=== PATIENT | male | born 1965 | race Caucasian/White ===

== ENCOUNTER 2023-09-02 15:45 | Outpatient (OUT) | payer OTHER, SELFPAY ==
--- NOTE | 2023-09-02 15:57 | XR_ITS ---
[address] [address] Patient Name: MARCO A MUNGUIA MRN: [id number] date: 1965 Sex: M Assigned Patient Location: RAD Current Patient Location: PT Accession/Order Number: [id number] Exam Date: 09/02/2023 16:05 Report Date: 09/04/2023 06:32 At the request of: RUDOLPH MAZARIEGOS Procedure: XR lumbar spine 6V w bending EXAMINATION: XR lumbar spine 6V w bending HISTORY: Acute Left Sided Low Back Pain M54.50 ; left leg weakness; no known injury COMPARISON: No relevant comparison available. FINDINGS: BONES: Mild degenerative facet arthropathy L4-L5, L5-S1. No fracture, spondylolisthesis, bone lesion. DISC SPACES: No significant disc height narrowing, subluxation, or endplate abnormality. PARASPINOUS: Negative. No paraspinous abnormality is seen. OTHER: Negative. XR/XR lumbar spine 6V w bending IMPRESSION: 1. Mild degenerative facet arthropathy lower lumbar spine. 2. No acute bone abnormality. 3. No appreciable degenerative disc disease. Consider follow-up MRI of lumbar spine for disc herniation if symptoms persist. Electronically authenticated by: THOMAS GALLAGHER Date: 09/04/2023 06:32
== END 2023-09-02 15:46 | disposition home or self-care (01) ==
LOC: RAD 15:51
PROVIDERS: PCP Internal Medicine; Visit Provider Internal Medicine
DX: M54.50 Low back pain, unspecified (principal)
CPT/HCPCS: 72114

== ENCOUNTER 2023-09-10 15:31 | Outpatient (RCR) | payer OTHER, SELFPAY | END 2023-10-03 10:00 | disposition home or self-care (01) | LOC: PT 15:31 | PROVIDERS: PCP Internal Medicine; Visit Provider Internal Medicine | DX: M46.1 Sacroiliitis, not elsewhere classified (principal) | CPT/HCPCS: 97112; 97140; 97162 ==

== ENCOUNTER 2023-10-04 09:24 | Outpatient (RCR) | payer OTHER, SELFPAY | END 2023-10-07 16:02 | disposition home or self-care (01) | LOC: PT 09:24 | PROVIDERS: PCP Internal Medicine; Visit Provider Internal Medicine | DX: M46.1 Sacroiliitis, not elsewhere classified (principal); M54.50 Low back pain, unspecified | CPT/HCPCS: 97110; 97112; 97140 ==

== ENCOUNTER 2023-10-27 15:45 | Outpatient (OUT) | payer OTHER, SELFPAY ==
--- NOTE | 2023-10-27 15:50 | XR_ITS ---
[address] [address] Patient Name: MARCO A MUNGUIA MRN: [id number] date: 1965 Sex: M Assigned Patient Location: [facility] Current Patient Location: Accession/Order Number: [id number] Exam Date: 10/27/2023 15:58 Report Date: 10/28/2023 07:06 At the request of: RUDOLPH MAZARIEGOS Procedure: XR hip RT 2V w/ pelvis PROCEDURE: XR hip RT 2V w/ pelvis COMPARISON: None. HISTORY: pain in right hip M25.551 FINDINGS: BONES:No fracture, acute abnormality, or significant arthropathy. SOFT TISSUES:Negative. No visible soft tissue swelling. EFFUSION:None visible. OTHER: Negative. XR/XR hip RT 2V w/ pelvis IMPRESSION: No acute abnormality Electronically authenticated by: CHRISETN WAGGONER Date: 10/28/2023 07:06
--- OUTSIDE RECORDS SUMMARY | 2023-10-27 16:03 | XMS_ITS | CCD ---
Author Name Unknown Address [address] [place] [address] Organization [facility] Care Team Providers Care Cleaning Associate Name Role Phone GORGE JACQUELINE Unavailable Unavailable BALL, HARLAN Ramirez Unavailable Unavailable BALL, DR GALDAMEZ Primary Care Unavailable BALL, DR GALDAMEZ Admitting Unavailable BALL, DR GALDAMEZ Attending Unavailable BALL, DR GALDAMEZ Primary Care Unavailable BALL, DR GALDAMEZ Admitting Unavailable BALL, DR GALDAMEZ Attending Unavailable BALL, DR GALDAMEZ Primary Care Unavailable REQUEST, DR LOPEZ LISTED Admitting Unavaila ble REQUEST, DR LOPEZ LISTED Attending Unavaila ble REQUEST, DR LOPEZ LISTED Consulting Unavaila ble BALL, DR GALDAMEZ Admitting Unavailable BALL, DR GALDAMEZ Attending Unavailable BALL, DR GALDAMEZ Consulting Unavailable BALL, DR GALDAMEZ Primary Care Unavailable ZIEBER, DR THOMAS Espinoza Consulting Unavailable BALL, DR GALDAMEZ Primary Care Unavailable BALL, DR GALDAMEZ Admitting Unavailable BALL, DR GALDAMEZ Attending Unavailable BALL, DR GALDAMEZ Consulting Unavailable BALL, DR GALDAMEZ Primary Care Unavailable BALL, DR GALDAMEZ Consulting Unavailable BALL, DR GALDAMEZ Admitting Unavailable BALL, DR GALDAMEZ Attending Unavailable BALL, DR GALDAMEZ Primary Care Unavailable BALL, DR GALDAMEZ Admitting Unavailable BALL, DR GALDAMEZ Attending Unavailable BALL, DR GALDAMEZ Consulting Unavailable WEST, DR CHRISTEN Sanchez Consulting Unavailable Ball, Harlan Unavailable Allergies Allergy Classification Reported Allergen(s) Allergy Type Date of Onset Reaction(s) Facility (1 source) Latex Drug allergy (disorder) 05-12-20 16 [facility] Repository (6 sources) atorvastatin Drug Allergy Comment:Myalgi as Home Inventory S[pecialists Other (6 sources) HMG-CoA reductase inhibitor Drug allergy Comment:Myalgi as - patient states he does not have allergies to STATINS Home Inventory S[pecialists Other (6 sources) Latex Propensity to adverse reactions Unknown Home Inventory S[pecialists Other (2 sources) Allergies Reconciled Propensity to adverse reactions Unknown Home Inventory S[pecialists Other (2 sources) patient allergy list reviewed by nurse or physicia Propensity to adverse reactions 07-06-20 Comment:Done Home Inventory S[pecialists Other Medications Current Medications Medication Drug Class(es) Dates Sig (Normalized) Sig (Original) omeprazole 40 mg delayed release oral capsule (6 sources) Proton Pump Inhibitor Start: 08-02-2023 take 1 capsule by mouth once daily Omeprazole 40 MG 1 capsule 30 minutes before morning meal Orally Once a day for 30 days Jul, Active rosuvastatin 20 mg oral capsule (6 sources) HMG-CoA Reductase Inhibitor Start: 07-27-2022 take 1 tablet by mouth once daily in the evening rosuvastatin 20mg rosuvastatin 20mg, 1 (one) tablet daily in evening # 30, 07/27/2022, Ref. x11. Active oral daily in evening for 30 *Reorder from [employer] for eRx and Interaction Alerts* Jul, Active take 1 tablet by teressa th every twenty-four hours Rosuvastatin Calcium 20 MG 1 tablet Oral ly Once a day Active Completed/Discontinued Medications Medication Drug Class(es) Dates Sig (Normalized) Sig (Original) citric acid 75 mg/ml / magnesium oxide 21.9 mg/ml / picosulfate sodium 0.0625 mg/ml oral solution (6 sources) Calculi Dissolution Agent, Anti-coagulant Start: 05-14-2021 take 160 mL by mouth in the evening, then take 160 mL by mouth twice daily in the evening Clenpiq 10-3.5-12 MG-GM -GM/160ML 160 ML AT 3:00 PM AND 160 ML AT 9:00 PM Orally TWICE A DAY for 1 days PLEASE CHECK ALLERGIES May, Not-Taking/PRN predniSONE 20 mg oral tablet (4 sources) Start: 09-01-2023 predniSONE 20 MG 1 tablet Orally tid w/ food x 3 days then bid w/ food x 3 days then qd w/ food x 3 days for 9 days Aug, Not-Taking/PRN Problems Active Problems Problem Classification Problem Date Documented Da te Episodic/Chronic Abdominal pain (2 sources) Epigastric pain; Translations: [Epigastric pain] Episodic Acute bronchitis (2 sources) Acute bronchitis; Translations: [Acute bronchitis, unspecified] Episodic Allergic reactions (8 sources) Inflammatory dermatosis; Translations: [Dermatitis, unspecified] Onset: 6 Episodic Coronary atherosclerosis and other heart disease (1 source) Coronary atherosclerosis and other heart disease Onset: 8 Disorders of lipid metabolism (6 sources) Familial hypercholesterolemia; Translations: [Familial hypercholesterolemia] Onset: 3 Chronic Esophageal disorders (12 sources) Gastro-esophageal reflux disease with esophagitis; Translations: [Gastro-esophageal reflux disease with esophagitis, without bleeding] Onset: 6 Chronic Hyperplasia of prostate (4 sources) Large prostate ; Translations: [Benign prostatic hyperplasia without lower urinary tract symptoms] Onset: 8 Chronic Nutritional deficiencies (6 sources) Vitamin D deficiency, unspecified; Translations: [Vitamin D deficiency] Onset: 1 Chronic Other circulatory disease (2 sources) Elevated blood-pressure reading without diagnosis of hypertension; Translations: [Elevated blood-pressure reading, without diagnosis of hypertension] Episodic Other circulatory disease (1 source) Other specified symptoms and signs involving the circulatory and respiratory systems Episodic Other connective tissue disease (2 sources) Nontraumatic rupture of rotator cuff of left shoulder; Translations: [Unspecified rotator cuff tear or rupture of left shoulder, not specified as traumatic] Episodic Other connective tissue disease (2 sources) Bicipital tenosynovitis; Translations: [Bicipital tendinitis, left shoulder] Episodic Other endocrine disorders (1 source) Testicular hypofunction; Translations: [TESTICULAR HYPOFUNCTION] Onset: 2 Chronic Other endocrine disorders (2 sources) Testicular hypofunction; Translations: [Testicular hypofunction] Chronic Other fractures (2 sources) Closed fracture of thoracic vertebra without spinal cord injury; Translations: [Wedge compression fracture of unspecified thoracic vertebra, initial encounter for closed fracture] Episodic Other gastrointestinal disorders (6 sources) Dysphagia; Translations: [Dysphagia, unspecified] Episodic Other lower respiratory disease (2 sources) Dyspnea; Translations: [Dyspnea, unspecified] Episodic Other nervous system disorders (1 source) Chronic pain; Translations: [Other chronic pain] Chronic Other nervous system disorders (1 source) Other chronic pain Chronic Other non-traumatic joint disorders (1 source) Pain in right hip Episodic Other non-traumatic joint disorders (1 source) Pain in left hip Episodic Other nutritional; endocrine; and metabolic disorders (2 sources) Simple obesity ; Translations: [Other obesity due to excess calories] Onset: 8 Chronic Other nutritional; endocrine; and metabolic disorders (2 sources) Body mass index 30+ - obesity; Translations: [Body mass index 30.0-30.9, adult] Onset: 8 Chronic Other nutritional; endocrine; and metabolic disorders (2 sources) Obesity; Translations: [Obesity, unspecified] Chronic Other upper respiratory disease (2 sources) Seasonal allergic rhinitis; Translations: [Other seasonal allergic rhinitis] Onset: 8 Chronic Other upper respiratory disease (2 sources) Allergic rhinitis; Translations: [Allergic rhinitis, unspecified] Chronic Other upper respiratory disease (2 sources) Allergic rhinitis due to pollen; Translations: [Allergic rhinitis due to pollen] Chronic Other upper respiratory disease (6 sources) Chronic laryngitis; Translations: [Chronic laryngitis] Chronic Other upper respiratory disease (1 source) Chronic laryngitis Chronic Other upper respiratory infections (6 sources) Acute maxillary sinusitis; Translations: [Acute maxillary sinusitis, unspecified] Onset: 3 Episodic Otitis media and related conditions (2 sources) Eustachian tube salpingitis; Translations: [Unspecified Eustachian salpingitis, bilateral] Episodic Residual codes; unclassified (2 sources) H/O: Disorder; Translations: [Personal history of other specified conditions] Episodic Spondylosis; intervertebral disc disorders; other back problems (7 sources) Cervical spondylosis without myelopathy; Translations: [Other spondylosis with radiculopathy, cervical region] Onset: 9 Chronic Spondylosis; intervertebral disc disorders; other back problems (2 sources) Low back pain; Translations: [Low back pain, unspecified] Episodic Syncope (2 sources) Syncope Onset: 8 Unclassified (1 source) Abnormal electrocardiogram [ECG] [EKG] / R94.31(ICD-9) Onset: 8 Unclassified (1 source) Family hx of ischem heart dis and oth dis of the circ sys / Z82.49(ICD-9) Onset: 8 Unclassified (1 source) Obesity, unspecified / E66.9(ICD-9) Onset: 8 Unclassified (3 sources) LOW BACK PAIN, UNSPECIFIED; Translations: [LOW BACK PAIN, UNSPECIFIED] Onset: 2 Past or Other Problems Problem Classification Problem Date Documented Date Episodic/Chronic Cardiac dysrhythmias (2 sources) Bradycardia; Translations: [Bradycardia, unspecified] Onset: 01-13-20 18 Episodic Conditions associated with dizziness or vertigo (2 sources) Dizziness and giddiness; Translations: [Dizziness and giddiness] Onset: 04-09-20 14 Episodic E Codes: Adverse effects of medical drugs (2 sources) Lipid-lowering drug adverse reaction; Translations: [Adverse effect of antihyperlipidemic and antiarteriosclerotic drugs, initial encounter] Onset: 11-23-19 17 Episodic Esophageal disorders (1 source) Esophageal disorders Intestinal infection (2 sources) Infectious colitis, enteritis and gastroenteritis; Translations: [Infectious gastroenteritis and colitis, unspecified] Onset: 11-01-19 18 Episodic Mycoses (2 sources) Tinea corporis; Translations: [Tinea corporis] Onset: 07-08-20 16 Episodic Other connective tissue disease (2 sources) Lateral epicondylitis; Translations: [Lateral epicondylitis of elbow] Onset: 09-24-20 16 Episodic Other connective tissue disease (4 sources) Patellar tendonitis; Translations: [Patellar tendinitis] Onset: 07-08-20 16 Episodic Other connective tissue disease (2 sources) Impingement syndrome of shoulder region; Translations: [Impingement syndrome of right shoulder] Onset: 01-22-20 16 Episodic Other connective tissue disease (2 sources) Muscle pain; Translations: [Unspecified myalgia and myositis] Onset: 11-23-19 17 Episodic Other fractures (5 sources) Wedge compression fracture of unspecified thoracic vertebra, initial encounter for closed fracture; Translations: [WEDGE COMPRS FX UNS TV INIT CLOS FX] Onset: 09-26-20 21 Episodic Other gastrointestinal disorders (2 sources) Pharyngeal dysphagia; Translations: [Dysphagia, pharyngoesophageal phase] Onset: 05-12-20 16 Episodic Other nutritional; endocrine; and metabolic disorders (2 sources) Overweight; Translations: [Overweight] Onset: 11-01-19 18 Episodic Other nutritional; endocrine; and metabolic disorders (2 sources) Body mass index 25-29 - overweight; Translations: [Body mass index 29.0-29.9, adult] Onset: 11-01-19 18 Episodic Other screening for suspected conditions (not mental disorders or infectious disease) (3 sources) Encounter for screening for malignant neoplasm of prostate; Translations: [Encounter for screening for diseases of the blood and blood-forming organs and certain disorders involving the immune mechanism] Onset: 03-05-20 18 Episodic Other skin disorders (2 sources) Disorder of sebaceous gland; Translations: [Other specified disease of sebaceous glands] Onset: 07-08-20 16 Episodic Sprains and strains (10 sources) Strain of muscle and/or tendon of thigh; Translations: [Strain of muscle, fascia and tendon of the posterior muscle group at thigh level, unspecified thigh, initial encounter] Onset: 09-24-20 Resolved : 04-14-20 21 Episodic Syncope (3 sources) Syncope and collapse; Translations: [Syncope and collapse] Onset: 01-27-20 18 Episodic Unclassified (1 source) LOW BACK PAIN, UNSPECIFIED; Translations: [LOW BACK PAIN, UNSPECIFIED] Onset: 10-05-19 22 Unclassified (2 sources) Long-term current use of drug therapy; Translations: [Long-term (current) use of other medications] Onset: 07-10-20 18 Unclassified (2 sources) Acute left-sided low back pain without sciatica M54.50 Results Test Name Value Interpretation Reference Range Facility GLYCOHEMOGLOBIN A1Con 2021 ADA RECOMMENDATION SEE BELOW Normal [facility] Comment on above: Result Comment: ADA RECOMMENDED LIMIT 4.0 - 6.0 ADA THERAPEUTIC TARGET < 7.0 ACTION SUGGESTED > 7.0 Performed By: #### D ATA1C #### [facility] [address] [place] [address] Dr. Christina Palacios Glucose [Mass/Vol] 134 mg/dL Normal [facility] Comment on above: Performed By: #### D ATA1C #### [facility] [address] [address] [address] Christina Palacios HbA1c (Bld) [Mass fraction] 6.3 % Critically high 4.5-6.2 [facility] Comment on above: Performed By: #### D ATA1C #### [facility] [address] [address] [address] Christina Palacios CBC AUTO DIFFon 07-25-2022 BASO # 0.1 103/ul Normal 0.0-0.1 [facility] Comment on above: Performed By: #### C BC #### [facility] [address] [place] [address] Dr. Christina Palacios Basophils/100 WBC (Bld) 0.8 % Normal 0.2-2.0 [facility] Comment on above: Performed By: #### C BC #### [facility] [address] [place] [address] Dr. Chrisitna Palacios EO # 0.4 103/ul Normal 0.0-0.7 [facility] Comment on above: Performed By: #### C BC #### [facility] [address] [place] [address] Dr. Christina Palacios Eosinophils/100 WBC (Bld) 4.7 % Normal 0.9-7.0 [facility] Comment on above: Performed By: #### C BC #### [facility] [address] [place] [address] Dr. Christina Palacios Erythrocyte distribution width (RBC) [Ratio] 12.1 % Normal 11.0-15.0 [facility] Comment on above: Performed By: #### C BC #### [facility] [address] [place] [address] Dr. Christina Palacios Hematocrit (Bld) [Volume fraction] 45.7 % Normal 42.0-54.0 [facility] Comment on above: Performed By: #### C BC #### [facility] [address] [place] [address] Dr. Christina Palacios Hemoglobin (Bld) [Mass/Vol] 15.5 g/dL Normal 14.0-18.0 [facility] Comment on above: Performed By: #### C BC #### [facility] [address] [place] [address] Dr. Christina Palacios IG # 0.03 10e3/ul Normal 0.00-0.03 [facility] Comment on above: Performed By: #### C BC #### [facility] [address] [place] [address] Dr. Christina Palacios IG % 0.4 % Normal 0.0-0.5 [facility] Comment on above: Performed By: #### C BC #### [facility] [address] [place] [address] Dr. Christina Palacios LYMPH # 1.7 103/ul Normal 1.2-3.8 [facility] Comment on above: Performed By: #### C BC #### [facility] [address] [place] [address] Dr. Christina Palacios Lymphocytes/100 WBC (Bld) 21.3 % Normal 20.5-60.0 [facility] Comment on above: Performed By: #### C BC #### [facility] [address] [place] [address] Dr. Christina Palacios MANUAL DIFF REQ NO Normal [facility] Comment on above: Performed By: #### C BC #### [facility] [address] [place] [address] Dr. Christina Palacios MCH (RBC) [Entitic mass] 30.6 pg Normal 25.9-34.0 [facility] Comment on above: Performed By: #### C BC #### [facility] [address] [place] [address] Dr. Christina Palacios MCHC (RBC) [Mass/Vol] 33.9 g/dL Normal 29.9-35.2 [facility] Comment on above: Performed By: #### C BC #### [facility] [address] [place] [address] Dr. Christina Palacios MCV (RBC) [Entitic vol] 90.1 fL Normal 80.0-94.0 [facility] Comment on above: Performed By: #### C BC #### [facility] [address] [place] [address] Dr. Christina Palacios MONO # 0.8 103/ul Normal 0.3-0.8 [facility] Comment on above: Performed By: #### C BC #### [facility] [address] [place] [address] Dr. Christina Palacios Monocytes/100 WBC (Bld) 9.6 % Normal 1.7-12.0 [facility] Comment on above: Performed By: #### C BC #### [facility] [address] [place] [address] Dr. Christina Palacios NEUT # 5.0 103/ul Normal 1.4-6.5 [facility] Comment on above: Performed By: #### C BC #### [facility] [address] [place] [address] Dr. Christina Palacios Neutrophils/100 WBC (Bld) 63.2 % Normal 43.0-75.0 [facility] Comment on above: Performed By: #### C BC #### [facility] [address] [place] [address] Dr. Christina Palacios Platelet mean volume (Bld) [Entitic vol] 9.7 fL Normal 9.5-13.5 [facility] Comment on above: Performed By: #### C BC #### [facility] [address] [place] [address] Dr. Christina Palacios PLT 221 103/ul Normal 150-450 [facility] Comment on above: Performed By: #### C BC #### [facility] [address] [place] [address] Dr. Christina Palacios RBC 5.07 106/ul Normal 4.70-6.10 [facility] Comment on above: Performed By: #### C BC #### [facility] [address] [place] [address] Dr. Christina Palacios WBC 7.9 103/ul Normal 4.0-11.0 [facility] Comment on above: Performed By: #### C BC #### [facility] [address] [place] [address] Dr. Christina Palacios LIPID PROFILEon 07-25-2022 CHOL-HDL RATIO NORM SEE BELOW Normal [facility] Comment on above: Result Comment: 3.3 - 4.4 LOW RISK 4.4 - 7.1 AVERAGE RISK 7.1 - 11.0 MODERATE RISK >11.0 HIGH RISK Performed By: #### C MP, LIPID #### [facility] [address] [address] [address] Christina Palacios Cholesterol [Mass/Vol] 197 mg/dL Normal <=200 [facility] Comment on above: Performed By: #### C MP, LIPID #### [facility] [address] [address] [address] Christina Palacios Cholesterol in HDL [Mass/Vol] 21 mg/dL Critically low 40-60 [facility] Comment on above: Performed By: #### C MP, LIPID #### [facility] [address] [address] [address] Christina Palacios Cholesterol in LDL [Mass/Vol] 134.0 mg/dL Normal [facility] Comment on above: Performed By: #### C MP, LIPID #### [facility] [address] [address] [address] Christina Palacios Cholesterol.total/Cho lesterol in HDL [Mass ratio] 9.4 {ratio} Normal [facility] Comment on above: Performed By: #### C MP, LIPID #### [facility] [address] [address] [address] Christina Palacios HDL NORMAL > or = 60 mg/dl - LOW CARDIOVASCULAR RISK <40 mg/dl - HIGH CARDIOVASCULAR RISK Normal [facility] Comment on above: Performed By: #### C MP, LIPID #### [facility] [address] [address] [address] Chrsitina Palacios LDL CALC NORMAL SEE BELOW Normal [facility] Comment on above: Result Comment: <100 mg/dl OPTIMAL 100 - 129 mg/dl NEAR OR ABOVE OPTIMAL 130 - 159 mg/dl BORDERLINE HIGH 160 - 189 mg/dl HIGH >190 mg/dl VERY HIGH Performed By: #### C MP, LIPID #### [facility] [address] [address] [address] Christina Palacios Triglyceride [Mass/Vol] 210 mg/dL Critically high <=150 [facility] Comment on above: Performed By: #### C MP, LIPID #### [facility] [address] [address] [address] Christina Palacios VLDL CALC 42.0 mg/dL Normal [facility] Comment on above: Performed By: #### C MP, LIPID #### [facility] [address] [place] [address] Dr. Christina Palacios PROF 14(COMP METB)on 022 Albumin [Mass/Vol] 3.8 g/dL Normal 3.4-5.0 [facility] Comment on above: Performed By: #### C MP, LIPID #### [facility] [address] [place] [address] Dr. Christina Palacios Albumin/Globulin [Mass ratio] 1.0 {ratio} Normal [facility] Comment on above: Performed By: #### C MP, LIPID #### [facility] [address] [place] [address] Dr. Christina Palacios ALP [Catalytic activity/Vol] 84 U/L Normal 46-116 [facility] Comment on above: Performed By: #### C MP, LIPID #### [facility] [address] [place] [address] Dr. Christina Palacios ALT [Catalytic activity/Vol] 47 U/L Normal 16-63 [facility] Comment on above: Performed By: #### C MP, LIPID #### [facility] [address] [place] [address] Dr. Christina Palacios Anion gap [Moles/Vol] 9.8 mmol/L Normal [facility] Comment on above: Performed By: #### C MP, LIPID #### [facility] [address] [place] [address] Dr. Christina Palacios AST [Catalytic activity/Vol] 24 U/L Normal 15-37 [facility] Comment on above: Performed By: #### C MP, LIPID #### [facility] [address] [place] [address] Dr. Christina Palacios Bilirubin [Mass/Vol] 0.5 mg/dL Normal 0.2-1.0 [facility] Comment on above: Performed By: #### C MP, LIPID #### [facility] [address] [place] [address] Dr. Christina Palacios Calcium [Mass/Vol] 8.8 mg/dL Normal 8.5-10.1 [facility] Comment on above: Performed By: #### C MP, LIPID #### [facility] [address] [place] [address] Dr. Christina Palacios Chloride [Moles/Vol] 102 mmol/L Normal 98-107 [facility] Comment on above: Performed By: #### C MP, LIPID #### [facility] [address] [place] [address] Dr. Christina Palacios CO2 [Moles/Vol] 29.2 mmol/L Normal 21.0-32.0 [facility] Comment on above: Performed By: #### C MP, LIPID #### [facility] [address] [place] [address] Dr. Christina Palacios Creatinine [Mass/Vol] 0.96 mg/dL Normal 0.70-1.30 [facility] Comment on above: Performed By: #### C MP, LIPID #### [facility] [address] [place] [address] Dr. Christina Palacios EGFR-AF CENTRAL AFRICAN >60 Normal >=60 [facility] Comment on above: Performed By: #### C MP, LIPID #### [facility] [address] [place] [address] Dr. Christina Palacios EGFR-NON AF CENTRAL AFRICAN >60 Normal >=60 [facility] Comment on above: Performed By: #### C MP, LIPID #### [facility] [address] [place] [address] Dr. Christina Palacios Globulin (S) [Mass/Vol] 3.7 g/dL Normal [facility] Comment on above: Performed By: #### C MP, LIPID #### [facility] [address] [place] [address] Dr. Christina Palacios Glucose [Mass/Vol] 134 mg/dL Critically high 74-106 [facility] Comment on above: Performed By: #### C MP, LIPID #### [facility] Laboratory [address] [place] [address] Dr. Christina Palacios Potassium [Moles/Vol] 4.0 mmol/L Normal 3.5-5.1 [facility] Comment on above: Performed By: #### C MP, LIPID #### [facility] [address] [address] [address] Christina Palacios Protein [Mass/Vol] 7.5 g/dL Normal 6.4-8.2 [facility] Comment on above: Performed By: #### C MP, LIPID #### [facility] [address] [address] [address] Christina Palacios Sodium [Moles/Vol] 137 mmol/L Normal 136-145 [facility] Comment on above: Performed By: #### C MP, LIPID #### [facility] [address] [place] [address] Dr. Christina Palacios Urea nitrogen [Mass/Vol] 17.0 mg/dL Normal 7.0-18.0 [facility] Comment on above: Performed By: #### C MP, LIPID #### [facility] [address] [place] [address] Dr. Christina Palacios Urea nitrogen/Creatinine [Mass ratio] 17.7 mg/mg Normal [facility] Comment on above: Performed By: #### C MP, LIPID #### [facility] [address] [place] [address] Dr. Christina Palacios TESTOSTERONE, TOTALon 2020 Testosterone [Mass/Vol] 321 ng/dL Normal 264-916 [facility] Comment on above: Result Comment: Adul t male reference interval is based on a population of healthy nonobese males (BMI <30) between 19 and 39 years old. kunal Parikh.al. JCEM 2017,102;8237-5363. PMID: [id number]. Performed By: #### T ESTTOT #### [facility] [address] [place] [address] Dr. Christina Palacios VIT D 25-OH LABCORPon 2020 Vitamin D, 25-Hydroxy 35.0 ng/mL Normal 30.0-100.0 [facility] Comment on above: Result Comment: Molly min D deficiency has been defined by the [place] [employer] and an Endocrine Society practice guideline as a level of serum 25-OH vitamin D less than 20 ng/mL (1,2). The Endocrine Society went on to further define vitamin D insufficiency as a level between 21 and 29 ng/mL (2). 1. IOM ([place] [employer]). 2010. Dietary reference intakes for calcium and D. [place]: The National Academies Press. 2. Ana MF, Dejuan NC, Tammy HAN, et al. Evaluation, treatment, and prevention of vitamin D deficiency: an Endocrine Society clinical practice guideline. JCEM. 2010; 96(7):1911-30. Performed By: #### V ITADLC #### [facility] [address] [place] [address] Dr. Christina Palacios PROF CHEM 8 (BAS METB)on Anion gap [Moles/Vol] 11.4 mmol/L Normal [facility] Comment on above: Performed By: #### B MP #### [facility] [address] [place] [address] Dr. Christina Palacios Calcium [Mass/Vol] 9.0 mg/dL Normal 8.4-10.2 [facility] Comment on above: Performed By: #### B MP #### [facility] [address] [place] [address] Dr. Christina Palacios Chloride [Moles/Vol] 102 mmol/L Normal 98-107 [facility] Comment on above: Performed By: #### B MP #### [facility] [address] [address] [address] Christina Palacios CO2 [Moles/Vol] 29.6 mmol/L Normal 22.0-30.0 [facility] Comment on above: Performed By: #### B MP #### [facility] [address] [address] [address] Christina Palacios Creatinine [Mass/Vol] 1.09 mg/dL Normal 0.66-1.25 [facility] Comment on above: Performed By: #### B MP #### [facility] [address] [address] [address] Christina Palacios EGFR-AF CENTRAL AFRICAN >60 Normal >=60 [facility] Comment on above: Performed By: #### B MP #### [facility] [address] [address] [address] Christina Palacios EGFR-NON AF CENTRAL AFRICAN >60 Normal >=60 [facility] Comment on above: Performed By: #### B MP #### [facility] [id number] Christina Palacios Glucose [Mass/Vol] 114 mg/dL Critically high 74-106 T [facility] Comment on above: Performed By: #### B MP #### [facility] [address] [address] [address] Christina Palacios Potassium [Moles/Vol] 4.0 mmol/L Normal 3.4-5.0 [facility] Comment on above: Performed By: #### B MP #### [facility] [address] [address] [address] Christina Palacios Sodium [Moles/Vol] 139 mmol/L Normal 137-145 [facility] Comment on above: Performed By: #### B MP #### [facility] [address] [address] [address] Christina Palacios Urea nitrogen [Mass/Vol] 19.0 mg/dL Normal 9.0-20.0 [facility] Comment on above: Performed By: #### B MP #### [facility] [address] [address] [address] Christina Palacios Urea nitrogen/Creatinine [Mass ratio] 17.4 mg/mg Normal [facility] Comment on above: Performed By: #### B MP #### [facility] [address] [address] [address] Christina Palacios XR DEXA BONE DENSITYon 09-26 XR DEXA BONE DENSITY EXAMINATION: XR DEX A BONE DENSITY, 09/26/2021 8:24 AM EST HISTORY: Closed fracture thoracic vertebra, wedge COMPARISON: None. TECHNIQUE: Dual-energy X-ray absorptiometry (DEXA) bone density study performed for the axial skeleton. FINDINGS: SPINE ANALYSIS: Average bone mineral density is 1.245 g/cm2. T-score (standard deviation relative to young adult mean): 0.5 . HIP ANALYSIS: Lowest bone mineral density is within the left femoral neck, 1.038 g/cm2. T-score (standard deviation relative to young adult mean): 0.0 . IMPRESSION: World Alan Organization Classification: Normal - Low Fracture Risk Electronically authenticated by: THOMAS GALLAGHER Date: 2021-09-26 08:53 Normal [facility] COVID-19 Antigenon 1 COVID-19 Antigen Healthcare Worker?: N Kavya Reference Kavya Reference Negative SARS-CoV+SARS-CoV-2 (COVID-19) Ag [Presence] in Respiratory specimen by Rapid immunoassay Negative for SARS Antigen by ARON COVID19 Blank Space Kavya Disclaimer Negative results, from patients with symptom Kavya Disclaimer onset beyond five days, should be treated as Kavya Disclaimer presumptive and confirmation with a molecular Kavya Disclaimer assay, if necessary, for patient management, Kavya Disclaimer may be performed. Negative results do not rule Kavya Disclaimer out COVID-19 and should not be used as the sole Kavya Disclaimer basis for treatment or patient management Kavya Disclaimer decisions, including infection control decisions. Kavya Disclaimer Negative results should be considered in the Kavya Disclaimer context of a patient's recent exposures, history Kavya Disclaimer and the presence of clinical signs and symptoms Kavya Disclaimer consistent with COVID-19. COVID19 Blank Space Kavya Disclaimer The Kavya SARS Antigen ARON does not differentiate Kavya Disclaimer between SARS-CoV and SARS-CoV-2. COVID19 Blank Space Kavya Disclaimer This test was developed and its performance Kavya Disclaimer characteristic determined by [employer] and Kavya Disclaimer validated at [facility]. This Kavya Disclaimer test has not been FDA cleared or approved. This Kavya Disclaimer test has been authorized by FDA under an Emergency Use Kavya Disclaimer Authorization (EUA). This test has been validated Kavya Disclaimer in accordance with the FDA's Guidance Document (Policy Kavya Disclaimer for Diagnostics Testing in Laboratories Certified to Kavya Disclaimer Perform High Complexity Testing under CLIA prior to Kavya Disclaimer Emergency Use Authorization for Coronavirus Kavya Disclaimer is during the Public Health Emergency) Kavya Disclaimer issued on January 04, 2020. This test is only authorized Kavya Disclaimer for the duration of time the declaration that Kavya Disclaimer circumstances exist justifying the authorization of Kavya Disclaimer the emergency use of in vitro diagnostic tests for Kavya Disclaimer detection of SARS-CoV-2 virus and/or diagnosis of Kavya Disclaimer COVID-19 infection under section 564(b)(1) of the Kavya Disclaimer Act, 21 U.S.C. 360bbb-3(b)(1), unless the Kavya Disclaimer authorization is terminated or revoked sooner. PERFORMED BY: [place] [address] PATHOLOGIST PSYCHIC READER ZEE STEINBERG M.D. Normal [facility] Comment on above: Performed By: #### C OVID-19 KAVYA, SOFIANEG #### [facility] [address] [id number] [facility] Kavya Ag Negativeon 09-18-20 21 Kavya Ag Negative Negative Normal Negative [facility] Comment on above: Result Comment: This is a duplicate Kavya SARS Antigen (ARON) result to be used for statistical tracking purpose only. PERFORMED BY: [facility] [address] [place] [address] PATHOLOGIST PSYCHIC READER ZEE STEINBERG M.D. Performed By: #### C OVID-19 KAVYA, SOFIANEG #### [facility] [address] [id number] [facility] XR LSPINE 2_3 VIEWSon 2020 XR LSPINE 2_3 VIEWS EXAMINATION: XR LSPINE 2_3 VIEWS HISTORY: Low back pain COMPARISON: No relevant comparison available. FINDINGS: BONES: Normal alignment with no spondylolisthesis. Anterior wedging T11 and T12 DISC SPACES: Normal. No significant disc height narrowing, subluxation, or endplate abnormality. PARASPINOUS: Negative. No paraspinous abnormality is seen. OTHER: Negative. IMPRESSION: Anterior wedging T11 and T12 vertebral bodies, age indeterminate Electronically authenticated by: CHRISTEN WAGGONER Date: 2021-09-08 07:26 Normal [facility] COVID-19 Antigenon COVID-19 Antigen Healthcare Worker?: N Kavya Reference Kavya Reference Negative SARS-CoV+SARS-CoV-2 (COVID-19) Ag [Presence] in Respiratory specimen by Rapid immunoassay Negative for SARS Antigen by ARON COVID19 Blank Space Kavya Disclaimer Negative results, from patients with symptom Kavya Disclaimer onset beyond five days, should be treated as Kavya Disclaimer presumptive and confirmation with a molecular Kavya Disclaimer assay, if necessary, for patient management, Kavya Disclaimer may be performed. Negative results do not rule Kavya Disclaimer out COVID-19 and should not be used as the sole Kavya Disclaimer basis for treatment or patient management Kavya Disclaimer decisions, including infection control decisions. Kavya Disclaimer Negative results should be considered in the Kavya Disclaimer context of a patient's recent exposures, history Kavya Disclaimer and the presence of clinical signs and symptoms Kavya Disclaimer consistent with COVID-19. COVID19 Blank Space Kavya Disclaimer The Kavya SARS Antigen ARON does not differentiate Kavya Disclaimer between SARS-CoV and SARS-CoV-2. COVID19 Blank Space Kavya Disclaimer This test was developed and its performance Kavya Disclaimer characteristic determined by [employer] and Kavya Disclaimer validated at [facility]. This Kavya Disclaimer test has not been FDA cleared or approved. This Kavya Disclaimer test has been authorized by FDA under an Emergency Use Kavya Disclaimer Authorization (EUA). This test has been validated Kavya Disclaimer in accordance with the FDA's Guidance Document (Policy Kavya Disclaimer for Diagnostics Testing in Laboratories Certified to Kavya Disclaimer Perform High Complexity Testing under CLIA prior to Kavya Disclaimer Emergency Use Authorization for Coronavirus Kavya Disclaimer is during the Public Health Emergency) Kavya Disclaimer issued on January 04, 2020. This test is only authorized Kavya Disclaimer for the duration of time the declaration that Kavya Disclaimer circumstances exist justifying the authorization of Kavya Disclaimer the emergency use of in vitro diagnostic tests for Kavya Disclaimer detection of SARS-CoV-2 virus and/or diagnosis of Kavya Disclaimer COVID-19 infection under section 564(b)(1) of the Kavya Disclaimer Act, 21 U.S.C. 360bbb-3(b)(1), unless the Kavya Disclaimer authorization is terminated or revoked sooner. PERFORMED BY: [facility] [address] [facility] [address] PATHOLOGIST PSYCHIC READER ZEE STEINBERG M.D. [facility] Comment on above: Performed By: #### S MARQUES COVID-19 KAVYA #### [address] Kavya Ag Negativeon 06-04-20 21 Kavya Ag Negative Negative Normal Negative [facility] Comment on above: Result Comment: This is a duplicate Kavya SARS Antigen (ARON) result to be used for statistical tracking purpose only. PERFORMED BY: [place] [address] PATHOLOGIST PSYCHIC READER ZEE STEINBERG M.D. Performed By: #### S OFIANEG, COVID-19 KAVYA #### [address] Vital Signs Date Time Vital Sign Value Performing Clinician Facility 10-26-2023 15:00-0500 Body height 175.26 cm Harlan Ball Other [employer] [facility] [employer] Other 10-26-2023 15:00-0500 Body mass index (BMI) [Ratio] 30.54 kg/m2 Harlan Ball Other [facility] Other 10-26-2023 15:00-0500 Body weight 93.8 kg Harlan Ball Other [facility] Other 10-26-2023 15:00-0500 Diastolic blood pressure 88 mm[Hg] Harlan Ball Other [facility] Other 10-26-2023 15:00-0500 Respiratory rate 12 /min Harlan Ball Other [facility] Other 10-26-2023 15:00-0500 Systolic blood pressure 147 mm[Hg] Harlan Ball Other [facility] Other 09-01-2023 15:15-0500 Body height 175.26 cm Harlan Ball Other [facility] Other 09-01-2023 15:15-0500 Body mass index (BMI) [Ratio] 30.92 kg/m2 Harlan Ball Other [facility] Other 09-01-2023 15:15-0500 Body weight 94.98 kg Harlan Hernandez Other [facility] Other 09-01-2023 15:15-0500 Diastolic blood pressure 94 mm[Hg] Harlan Hernandez Other [facility] Other 09-01-2023 15:15-0500 Respiratory rate 12 /min Harlan Hernandez Other [facility] Other 09-01-2023 15:15-0500 Systolic blood pressure 157 mm[Hg] Harlan Hernandez Other [facility] Other Encounters Encounter Date Encounter Type Care Provider Facility Start: 10-26-2023 End: 10-26-2023 ambulatory Harlan Hernandez Other [facility] Other Start: 10-26-2023 Office outpatient vi sit 15 minutes Harlan Ball [facility] Start: 09-06-2023 End: 09-06-2023 ambulatory Harlan Hernandez Other [facility] Other Start: 09-06-2023 Telephone encounter Harlan Hernandez [facility] Start: 09-01-2023 End: 09-01-2023 ambulatory Harlan Hernandez Other [facility] Other Start: 09-01-2023 Office outpatient vi sit 15 minutes Harlan Ball [facility] Start: 09-01-2023 Telephone encounter Harlan Ball [facility] Start: 08-02-2023 End: 08-02-2023 ambulatory Harlan Ball Other [facility] Other Start: 08-02-2023 Office outpatient vi sit 15 minutes Harlan Ball [facility] Start: 08-02-2023 Telephone encounter Harlan Ball [facility] Start: 07-29-2022 Encounter for genera l adult medical examination without abnormal findings DR HARLAN HERNANDEZ [facility] Start: 07-27-2022 End: 07-28-[address] HARLAN HERNANDEZ Facility:[facility] Start: 07-25-2022 End: 07-26-[address] HARLAN HERNANDEZ Facility:[facility] Start: 07-25-2022 End: 07-26-2022 Encounter for general adult medical examination without abnormal findings DR HARLAN HERNANDEZ Facility:[facility] Start: 07-14-2022 Adult health examination Harlan Hernandez Other [facility] Other Start: 10-05-2021 End: 10-17-[address] HARLAN HERNANDEZ Facility:[facility] Start: 09-29-2021 End: 09-30-[address] HARLAN HERNANDEZ Facility:[facility] Start: 09-26-2021 End: 09-27-[address] HARLAN HERNANDEZ Facility:[facility] Start: 09-11-2021 End: 10-03-[address] HARALN HERNANDEZ Facility:[facility] Start: 09-06-2021 End: 09-07-[address] HARLAN HERNANDEZ Facility:[facility] Start: 03-03-2018 Ambulatory JACQUELINE PENNINGTON Faci lity:[id number] Start: 03-03-2018 Ambulatory Facility:9 [id number] Procedures Date Procedure Procedure Detail Performing Clinician Start: 07-25-[address] SHINE [facility] [place] Comment on above: Performed By: #### P [facility] #### [facility] [address] [place] [address] Dr. Christina Palacios Start: 04-12-2018 General examination of patient Harlan Hernandez Other Start: 03-05-2018 Screening for malign ant neoplasm of colon Harlan Hernandez Other Depression screening Lizette Hernandez Other Screening for malign ant neoplasm of prostate Harlan Hernandez Other Immunizations Immunization Date Immunization Notes Care Provider Ashley loo 07-18-2021 influenza virus vaccine, split virus (incl. purified surface antigen) Harlan Hernandez Other [facility] Other 01-08-2021 COVID-19 Vaccine Pfi zer - Documentation Purposes Only Harlan Hernandez Other [facility] Other 12-18-2020 Do not use COVID-19 Pfizer 2 dose Harlan Ball Other [facility] Other Payers Date Payer Category Payer Unknown [id number] 2.16.84 [id number] 1965 Unknown [id number] 2.16.84 [id number] 1965 Unknown [id number] 2.16.84 [id number] 1965 Unknown [id number] 2.16.84 [id number] 1965 Unknown [id number] 2.16.84 [id number] 1965 Unknown [id number] 2.16.84 [id number] 1960 Self-pay 1960 Unknown [id number] 1960 Unknown [id number] Unknown [id number] 2.16.84 [id number] Social History Date Type Detail Facility Unknown if ever smoked [facility] Other Sex Assigned At Sex Assigned At Bir th [facility] Other Evaluation note 10-26-2023 Note Date & Type Note Facility 10-26-2023 Evaluation note Encounter Date Diagnosis Assessment Notes Oct, Pain in right hip (ICD-10 - M25.551) Pain locate in proximal hamstring area. Instructed on stretching, ice/heat and topical analgesics. XR hip Oct, Low back pain, unspecified (ICD-10 - M54.50) Continue HEP set up w/ PT Heat/ice and stretching Lidocaine patches, Tylenol and Aleve Oct, Pain in left hip (ICD-10 - M25.552) Pain has resolved w/ residual aching w/ initiating activity Oct, Other chronic pain (ICD-10 - G89.29) Persistent pain in the low back, hips and proximal lower extremities. Unsure of exact etiology but degenerative arthritis, muscle strain likely cause Migratory characteristics and improvement w/ movement point towards OA Oct, Other The patient is instructed to avoid bending, twisting or lifting. They are to use intermittent heat and ice as needed. They may schedule a massage or gentle manipulation. They may safely use Tylenol as needed. Stretching exercises [facility] Other Evaluation note 09-01-2023 Note Date & Type Note Facility 09-01-2023 Evaluation note Encounter Date Diagnosis Assessment Notes Aug, Acute left-sided low back pain without sciatica (ICD-10 - M54.50) Heat/ice and stretching. Tylenol and Motrin as needed. XR ordered Refer to PT Aug, Sacroiliitis (ICD-10 - M46.1) Heat/ice and Tylenol. Motrin as needed. Stretching exercises reviewed w/ handouts. Refer to PT for evaluation and treatment No improvement would refer to pain management [facility] Other Evaluation note 08-02-2023 Note Date & Type Note Facility 08-02-2023 Evaluation note Encounter Date Diagnosis Assessment Notes Jul, Choking episode (ICD-10 - R09.89) Smaller bites, chew food thoroughly and drink between bites. MBS to assess swallowing function, r/o aspiration Jul, Chronic laryngitis (ICD-10 - J37.0) GERD precautions. MBS and referral to ENT for direct laryngoscopy Jul, Gastroesophageal reflux disease with esophagitis without hemorrhage (ICD-10 - K21.00) Diet instructions: Smaller portions, avoid eating and laying flat, avoid eating or drinking prior to bedtime. Weight loss. Initiate PPI [facility] Other Evaluation note Note Date & Type Note Facility Evaluation note No Information [email or web address] Other History general Narrative - Reported Note Date & Type Note Facility History general Narrative - Reported Type Medical History HLD Surgical History appendix Surgical History tonsils Surgical History hernia [facility] Other History general Narrative - Reported Note Date & Type Note Facility History general Narrative - Reported Type Medical History HLD Surgical History appendix Surgical History tonsils Surgical History hernia Hospitalization History see surgical history [facility] Other Summary Purpose Family History No Family History Records FoundNo Family History Records FoundNo Family History Records FoundNo Family History Records Found Advance Directives No Advanced Directives Records FoundNo Advanced Directives Records FoundNo Advanced Directives Records FoundNo Advanced Directives Records Found Additional Source Comments (unrecognized sect ion and content) No Status Records FoundNo Status Records FoundNo Status Records FoundNo Status Records Found INFORMATION SOURCE (unrecogn ized section and content) DATE CREATED AUTHOR 03/23/2018 [facility] DATE CREATED AUTHOR AUTHOR'S ORGANIZ ATION 03/23/2018 [facility] [place] DATE CREATED AUTHOR AUTHOR'S ORGANIZ ATION 10/27/2021 [facility] DATE CREATED AUTHOR AUTHOR'S ORGANIZ ATION 07/30/2022 [facility] REASON FOR VISIT (unrecogniz ed section and content) discuss next steps after PTX R resultsPT orderBack/Leg Painsore throat for weeks [phone] FOR RECORDS PERTAINING TO PATIENTS WHO ARE OR HAVE BEEN ENROLLED IN A CHEMICAL DEPENDENCY/SUBSTANCEABUSE PROGRAM, SOME INFORMATION MAY BE OMITTED. This clinical summary was aggregated from multiple sources. Caution should be exercised in using it in the provision of clinical care. This summary normalizes information from multiple sources, and as a consequence, information in this document may materially change the coding, format and clinical context of patient data. In addition, data may be omitted in some cases. CLINICAL DECISIONS SHOULD BE BASED ON THE PRIMARY CLINICAL RECORDS. [employer] provides no warranty or guarantee of the accuracy or completeness of information in this document.
== END 2023-10-27 15:46 | disposition home or self-care (01) ==
LOC: RAD 15:46
PROVIDERS: PCP Internal Medicine; Visit Provider Internal Medicine
DX: M25.551 Pain in right hip (principal)
CPT/HCPCS: 73502

== ENCOUNTER 2023-11-16 15:36 | Outpatient (OUT) | payer OTHER, SELFPAY ==
--- NOTE | 2023-11-16 15:41 | MR_ITS ---
The [address] [address] Patient Name: MARCO A MUNGUIA MRN: [id number] date: 1965 Sex: M Assigned Patient Location: MRI Current Patient Location: MRI Accession/Order Number: [id number] Exam Date: 11/16/2023 15:46 Report Date: 11/16/2023 18:29 At the request of: RUDOLPH MAZARIEGOS Procedure: MR lumbar spine wo con EXAM: MRI of the lumbar spine without IV gadolinium contrast. REASON FOR EXAM: Acute lower back pain with pain radiating into the left hip COMPARISON: None FINDINGS: No lumbar spine fractures, acute malalignment or acute abnormal marrow signal. No spinal canal mass, hematoma or fluid collection. No substantial disc bulges or protrusions. Preserved intervertebral disc heights. Bilateral L5-S1 degenerative facet joint changes. No substantial spinal canal stenoses. No substantial neural foraminal stenoses. Remainder unremarkable. MR/MR lumbar spine wo con IMPRESSION: 1. No acute lumbar spine abnormalities. 2. No substantial spinal canal or neural foraminal stenoses. Electronically authenticated by: JOHANN GALINDO Date: 11/16/2023 18:29
--- OUTSIDE RECORDS SUMMARY | 2023-11-16 15:55 | XMS_ITS | CCD ---
Author Name Unknown Address [address] [place] [address] Organization [facility] Care Team Providers [facility] Manager Name Role Phone GORGE JACQUELINE Unavailable Unavailable [...] Latex Drug allergy (disorder) 05-12-20 16 [facility] Repository (9 sources) atorvastatin Drug Allergy Comment:Myalgi as [facility] Other (9 sources) HMG-CoA reductase inhibitor Drug allergy Comment:Myalgi as - patient states he does not have allergies to STATINS [facility] Other (9 sources) Latex Propensity to adverse reactions Unknown [facility] Other (2 sources) Allergies Reconciled Propensity to adverse reactions Unknown [facility] Other (2 sources) patient allergy list reviewed by nurse or physicia Propensity to adverse reactions 07-06-20 Comment:Done [facility] Other Medications Current Medications Medication Drug Class(es) Dates Sig (Normalized) Sig (Original) omeprazole 40 mg delayed release oral capsule (9 sources) Proton Pump Inhibitor Start: 08-02-2023 take 1 capsule by mouth once daily Omeprazole 40 MG 1 capsule 30 minutes before morning meal Orally Once a day for 30 days Jul, Active rosuvastatin 20 mg oral capsule (9 sources) HMG-CoA Reductase Inhibitor Start: 07-27-2022 take 1 tablet by mouth once daily in the evening rosuvastatin 20mg rosuvastatin 20mg, 1 (one) tablet daily in evening # 30, 07/27/2022, Ref. x11. Active oral daily in evening for 30 *Reorder from [employer] for eRx and Interaction Alerts* Jul, Active take 1 tablet by teressa th every twenty-four hours Rosuvastatin Calcium 20 MG 1 tablet Oral ly Once a day Active Completed/Discontinued Medications Medication Drug Class(es) Dates Sig (Normalized) Sig (Original) citric acid 75 mg/ml / magnesium oxide 21.9 mg/ml / picosulfate sodium 0.0625 mg/ml oral solution (9 sources) Calculi Dissolution Agent, Anti-coagulant Start: 05-14-2021 take 160 mL by mouth in the evening, then take 160 mL by mouth twice daily in the evening Clenpiq 10-3.5-12 MG-GM -GM/160ML 160 ML AT 3:00 PM AND 160 ML AT 9:00 PM Orally TWICE A DAY for 1 days PLEASE CHECK ALLERGIES May, Not-Taking/PRN predniSONE 20 mg oral tablet (7 sources) Start: 09-01-2023 predniSONE 20 MG 1 [...] [Familial hypercholesterolemia] Onset: 3 Chronic Esophageal disorders (15 sources) Gastro-esophageal reflux disease with esophagitis; Translations: [...] for closed fracture] Episodic Other gastrointestinal disorders (9 sources) Dysphagia; Translations: [Dysphagia, unspecified] Episodic Other lower respiratory disease (2 sources) Dyspnea; Translations: [Dyspnea, unspecified] Episodic Other nervous system disorders (4 sources) Chronic pain; Translations: [Other chronic pain] Chronic Other nervous system disorders (2 sources) Other chronic pain Chronic Other non-traumatic joint disorders (2 sources) Pain in right hip Episodic Other non-traumatic joint disorders (2 sources) Pain in left hip Episodic Other nutritional; [...] to pollen] Chronic Other upper respiratory disease (9 sources) Chronic laryngitis; Translations: [Chronic laryngitis] Chronic [...] Spondylosis; intervertebral disc disorders; other back problems (11 sources) Cervical spondylosis without myelopathy; Translations: [Other spondylosis with radiculopathy, cervical region] Onset: 9 Chronic Spondylosis; intervertebral disc disorders; other back problems (4 sources) Low back pain; Translations: [Low back [...] of other medications] Onset: 07-10-20 18 Unclassified (4 sources) Acute left-sided low back pain without sciatica M54.50 Results Test Name Value Interpretation Reference Range Facility GLYCOHEMOGLOBIN A1Con 2021 ADA RECOMMENDATION SEE BELOW Normal [facility] Comment on above: Result Comment: ADA RECOMMENDED LIMIT 4.0 - 6.0 ADA THERAPEUTIC TARGET < 7.0 ACTION SUGGESTED > 7.0 Performed By: #### D ATA1C #### [facility] [address] [place] [address] Dr. Christina Palacios Glucose [Mass/Vol] 134 mg/dL Normal [facility] Comment on above: Performed By: #### D ATA1C #### [facility] [address] [address] [address] Christina Palacios HbA1c (Bld) [Mass fraction] 6.3 % Critically high 4.5-6.2 [facility] Comment on above: Performed By: #### D ATA1C #### [facility] [address] [address] [address] Christina Palacios CBC AUTO DIFFon 07-25-2022 BASO # 0.1 103/ul Normal 0.0-0.1 [facility] Comment on above: Performed By: #### C BC #### [facility] [address] [place] [address] Dr. Christina Palacios Basophils/100 WBC (Bld) 0.8 % Normal 0.2-2.0 [facility] Comment on above: Performed By: #### C BC #### [facility] [address] [place] [address] Dr. Christina Palacios EO # 0.4 103/ul Normal 0.0-0.7 [facility] Comment on above: Performed By: #### C BC #### [facility] [address] [place] [address] Dr. Christina Palacios Eosinophils/100 WBC (Bld) 4.7 % Normal 0.9-7.0 [facility] Comment on above: Performed By: #### C BC #### [facility] [address] [place] [address] Dr. Christina Palacios Erythrocyte distribution width (RBC) [Ratio] 12.1 % Normal 11.0-15.0 [facility] Comment on above: Performed By: #### C BC #### [facility] [address] [place] [address] Dr. Christina Palacios Hematocrit (Bld) [Volume fraction] 45.7 % Normal 42.0-54.0 [facility] Comment on above: Performed By: #### C BC #### [facility] [address] [place] [address] Dr. Christina Palacios Hemoglobin (Bld) [Mass/Vol] 15.5 g/dL Normal 14.0-18.0 [facility] Comment on above: Performed By: #### C BC #### [facility] [address] [place] [address] Dr. Christina Palacios IG # 0.03 10e3/ul Normal 0.00-0.03 [facility] Comment on above: Performed By: #### C BC #### [facility] [address] [place] [address] Dr. Christina Palacios IG % 0.4 % Normal 0.0-0.5 [facility] Comment on above: Performed By: #### C BC #### [facility] [address] [place] [address] Dr. Christina Palacios LYMPH # 1.7 103/ul Normal 1.2-3.8 [facility] Comment on above: Performed By: #### C BC #### [facility] [address] [place] [address] Dr. Christina Palacios Lymphocytes/100 WBC (Bld) 21.3 % Normal 20.5-60.0 [facility] Comment on above: Performed By: #### C BC #### [facility] [address] [place] [address] Dr. Christina Palacios MANUAL DIFF REQ NO Normal [facility] Comment on above: Performed By: #### C BC #### [facility] [address] [place] [address] Dr. Christina Palacios MCH (RBC) [Entitic mass] 30.6 pg Normal 25.9-34.0 [facility] Comment on above: Performed By: #### C BC #### [facility] [address] [place] [address] Dr. Christina Palacios MCHC (RBC) [Mass/Vol] 33.9 g/dL Normal 29.9-35.2 [facility] Comment on above: Performed By: #### C BC #### [facility] [address] [place] [address] Dr. Christina Palacios MCV (RBC) [Entitic vol] 90.1 fL Normal 80.0-94.0 [facility] Comment on above: Performed By: #### C BC #### [facility] [address] [place] [address] Dr. Christina Palacios MONO # 0.8 103/ul Normal 0.3-0.8 [facility] Comment on above: Performed By: #### C BC #### [facility] [address] [place] [address] Dr. Christina Palacios Monocytes/100 WBC (Bld) 9.6 % Normal 1.7-12.0 [facility] Comment on above: Performed By: #### C BC #### [facility] [address] [place] [address] Dr. Christina Palacios NEUT # 5.0 103/ul Normal 1.4-6.5 [facility] Comment on above: Performed By: #### C BC #### [facility] [address] [place] [address] Dr. Christina Palacios Neutrophils/100 WBC (Bld) 63.2 % Normal 43.0-75.0 [facility] Comment on above: Performed By: #### C BC #### [facility] [address] [place] [address] Dr. Christina Palacios Platelet mean volume (Bld) [Entitic vol] 9.7 fL Normal 9.5-13.5 [facility] Comment on above: Performed By: #### C BC #### [facility] [address] [place] [address] Dr. Christina Palacios PLT 221 103/ul Normal 150-450 [facility] Comment on above: Performed By: #### C BC #### [facility] [address] [place] [address] Dr. Christina Palacios RBC 5.07 106/ul Normal 4.70-6.10 [facility] Comment on above: Performed By: #### C BC #### [facility] [address] [place] [address] Dr. Christina Palacios WBC 7.9 103/ul Normal 4.0-11.0 [facility] Comment on above: Performed By: #### C BC #### [facility] [address] [place] [address] Dr. Christina Palacios LIPID PROFILEon 07-25-2022 CHOL-HDL RATIO NORM SEE BELOW Normal [facility] Comment on above: Result Comment: 3.3 - 4.4 LOW RISK 4.4 - 7.1 AVERAGE RISK 7.1 - 11.0 MODERATE RISK >11.0 HIGH RISK Performed By: #### C MP, LIPID #### [facility] [address] [address] [address] Christina Palacios Cholesterol [Mass/Vol] 197 mg/dL Normal <=200 [facility] Comment on above: Performed By: #### C MP, LIPID #### [facility] [address] [address] [address] Christina Palacios Cholesterol in HDL [Mass/Vol] 21 mg/dL Critically low 40-60 [facility] Comment on above: Performed By: #### C MP, LIPID #### [facility] [address] [address] [address] Christina Palacios Cholesterol in LDL [Mass/Vol] 134.0 mg/dL Normal [facility] Comment on above: Performed By: #### C MP, LIPID #### [facility] [address] [address] [address] Christina Palacios Cholesterol.total/Cho lesterol in HDL [Mass ratio] 9.4 {ratio} Normal [facility] Comment on above: Performed By: #### C MP, LIPID #### [facility] [address] [address] [address] Christina Palacios HDL NORMAL > or = 60 mg/dl - LOW CARDIOVASCULAR RISK <40 mg/dl - HIGH CARDIOVASCULAR RISK Normal [facility] Comment on above: Performed By: #### C MP, LIPID #### [facility] [address] [address] [address] Christina Palacios LDL CALC NORMAL SEE BELOW Normal [facility] Comment on above: Result Comment: <100 mg/dl OPTIMAL 100 - 129 mg/dl NEAR OR ABOVE OPTIMAL 130 - 159 mg/dl BORDERLINE HIGH 160 - 189 mg/dl HIGH >190 mg/dl VERY HIGH Performed By: #### C MP, LIPID #### [facility] [address] [address] [address] Christina Palacios Triglyceride [Mass/Vol] 210 mg/dL Critically high <=150 [facility] Comment on above: Performed By: #### C MP, LIPID #### [facility] [address] [address] [address] Christina Palacios VLDL CALC 42.0 mg/dL Normal [facility] Comment on above: Performed By: #### C MP, LIPID #### [facility] [address] [place] [address] Dr. Christina Palacios PROF 14(COMP METB)on 022 Albumin [Mass/Vol] 3.8 g/dL Normal 3.4-5.0 [facility] Comment on above: Performed By: #### C MP, LIPID #### [facility] [address] [place] [address] Dr. Chrisitna Palacios Albumin/Globulin [Mass ratio] 1.0 {ratio} Normal [facility] Comment on above: Performed By: #### C MP, LIPID #### [facility] [address] [place] [address] Dr. Christina Palacios ALP [Catalytic activity/Vol] 84 U/L Normal 46-116 [facility] Comment on above: Performed By: #### C MP, LIPID #### [facility] [address] [place] [address] Dr. Christina Palacios ALT [Catalytic activity/Vol] 47 U/L Normal 16-63 [facility] Comment on above: Performed By: #### C MP, LIPID #### [facility] [address] [place] [address] Dr. Christina Palacios Anion gap [Moles/Vol] 9.8 mmol/L Normal [facility] Comment on above: Performed By: #### C MP, LIPID #### [facility] [address] [place] [address] Dr. Christina Palacios AST [Catalytic activity/Vol] 24 U/L Normal 15-37 [facility] Comment on above: Performed By: #### C MP, LIPID #### [facility] [address] [place] [address] Dr. Christina Palacios Bilirubin [Mass/Vol] 0.5 mg/dL Normal 0.2-1.0 [facility] Comment on above: Performed By: #### C MP, LIPID #### [facility] [address] [place] [address] Dr. Christina Palacios Calcium [Mass/Vol] 8.8 mg/dL Normal 8.5-10.1 [facility] Comment on above: Performed By: #### C MP, LIPID #### [facility] [address] [place] [address] Dr. Christina Palacios Chloride [Moles/Vol] 102 mmol/L Normal 98-107 [facility] Comment on above: Performed By: #### C MP, LIPID #### [facility] [address] [place] [address] Dr. Christina Palacios CO2 [Moles/Vol] 29.2 mmol/L Normal 21.0-32.0 [facility] Comment on above: Performed By: #### C MP, LIPID #### [facility] [address] [place] [address] Dr. Christina Palacios Creatinine [Mass/Vol] 0.96 mg/dL Normal 0.70-1.30 [facility] Comment on above: Performed By: #### C MP, LIPID #### [facility] [address] [place] [address] Dr. Christina Palacios EGFR-AF BAHRAINI >60 Normal >=60 [facility] Comment on above: Performed By: #### C MP, LIPID #### [facility] [address] [place] [address] Dr. Christina Palacios EGFR-NON AF BAHRAINI >60 Normal >=60 [facility] Comment on above: Performed By: #### C MP, LIPID #### [facility] [address] [place] [address] Dr. Christina Palacios Globulin (S) [Mass/Vol] 3.7 g/dL Normal [facility] Comment on above: Performed By: #### C MP, LIPID #### [facility] [address] [place] [address] Dr. Christina Palacios Glucose [Mass/Vol] 134 mg/dL Critically high 74-106 [facility] Comment on above: Performed By: #### C MP, LIPID #### [facility] [address] [place] [address] Dr. Christina Palacios Potassium [Moles/Vol] 4.0 mmol/L Normal 3.5-5.1 [facility] Comment on above: Performed By: #### C MP, LIPID #### [facility] [address] [address] [address] Christina Palacios Protein [Mass/Vol] 7.5 g/dL Normal 6.4-8.2 [facility] Comment on above: Performed By: #### C MP, LIPID #### [facility] [address] [address] [address] Christina Palacios Sodium [Moles/Vol] 137 mmol/L Normal 136-145 [facility] Comment on above: Performed By: #### C MP, LIPID #### [facility] [address] [place] [address] Dr. Christina Palacios Urea nitrogen [Mass/Vol] 17.0 mg/dL Normal 7.0-18.0 [facility] Comment on above: Performed By: #### C MP, LIPID #### [facility] [address] [place] [address] Dr. Christina Palacios Urea nitrogen/Creatinine [Mass ratio] 17.7 mg/mg Normal [facility] Comment on above: Performed By: #### C MP, LIPID #### [facility] [address] [place] [address] Dr. Christina Palacios TESTOSTERONE, TOTALon 2020 Testosterone [Mass/Vol] 321 ng/dL Normal 264-916 [facility] Comment on above: Result Comment: Adul t male reference interval is based on a population of healthy nonobese males (BMI <30) between 19 and 39 years old. kunal Parikh.al. JCEM 2017,102;0991-7211. PMID: [id number]. Performed By: #### T ESTTOT #### [facility] [address] [place] [address] Dr. Christina Palacios VIT D 25-OH LABCORPon 2020 Vitamin D, 25-Hydroxy 35.0 ng/mL Normal 30.0-100.0 [facility] Comment on above: Result Comment: Molly min D deficiency has been defined by the [place] of [employer] and an Endocrine Society practice guideline as a level of serum 25-OH vitamin D less than 20 ng/mL (1,2). The Endocrine Society went on to further define vitamin D insufficiency as a level between 21 and 29 ng/mL (2). 1. IOM ([place] of Medicine). 2010. Dietary reference intakes for calcium and D. [place]: The National Academies Press. 2. Ana MF, Dejuan NC, Tammy HAN, et al. Evaluation, treatment, and prevention of vitamin D deficiency: an Endocrine Society clinical practice guideline. JCEM. 2010; 96(7):1911-30. Performed By: #### V ITADLC #### [facility] [address] [place] [address] Dr. Christina Palacios PROF CHEM 8 (BAS METB)on Anion gap [Moles/Vol] 11.4 mmol/L Normal [facility] Comment on above: Performed By: #### B MP #### [facility] [address] [place] [address] Dr. Christina Palacios Calcium [Mass/Vol] 9.0 mg/dL Normal 8.4-10.2 [facility] Comment on above: Performed By: #### B MP #### [facility] [address] [place] [address] Dr. Christina Palacios Chloride [Moles/Vol] 102 mmol/L Normal 98-107 [facility] Comment on above: Performed By: #### B MP #### [facility] [address] [address] [address] Christina Palacios CO2 [Moles/Vol] 29.6 mmol/L Normal 22.0-30.0 [facility] Comment on above: Performed By: #### B MP #### [facility] [address] [address] [address] Christina Palacios Creatinine [Mass/Vol] 1.09 mg/dL Normal 0.66-1.25 [facility] Comment on above: Performed By: #### B MP #### [facility] [address] [address] [address] Christina Palacios EGFR-AF BAHRAINI >60 Normal >=60 [facility] Comment on above: Performed By: #### B MP #### [facility] [address] [address] [address] Christina Palacios EGFR-NON AF BAHRAINI >60 Normal >=60 [facility] Comment on above: Performed By: #### B MP #### [facility] [id number] Christina Palacios Glucose [Mass/Vol] 114 mg/dL Critically high 74-106 [facility] Comment on above: Performed By: #### B MP #### [facility] [address] [address] [address] Christina Palacios Potassium [Moles/Vol] 4.0 mmol/L Normal 3.4-5.0 [facility] Comment on above: Performed By: #### B MP #### [facility] [address] [address] [address] Christina Palacios Sodium [Moles/Vol] 139 mmol/L Normal 137-145 [facility] Comment on above: Performed By: #### B MP #### [facility] [address] [address] [address] Christina Palacios Urea nitrogen [Mass/Vol] 19.0 mg/dL Normal 9.0-20.0 [facility] Comment on above: Performed By: #### B MP #### [facility] [address] [address] [address] Christina Palacios Urea nitrogen/Creatinine [Mass ratio] 17.4 mg/mg Normal [facility] Comment on above: Performed By: #### B MP #### [facility] [address] [address] [address] Christina Palacios XR DEXA BONE DENSITYon [...] by: THOMAS GALLAGHER Date: 2021-09-26 08:53 Normal [facility] COVID-19 Antigenon 1 COVID-19 Antigen Healthcare Worker?: [...] its performance Kavya Disclaimer characteristic determined by [employer] and Kavya Disclaimer validated at [facility]. This Kavya Disclaimer test has not [...] Disclaimer is during the Public Health Emergency) Kvaya Disclaimer issued on January 04, 2020. This [...] is terminated or revoked sooner. PERFORMED BY: [place] [id number] PATHOLOGIST [employer] PIPING DESIGNER ZEE STEINBERG M.D. Normal [facility] Comment on above: Performed By: #### C OVID-19 KAVYA, SOFIANEG #### [facility] [address] [id number] [facility] Kavya Ag Negativeon 09-18-20 21 Kavya Ag Negative Negative Normal Negative [facility] Comment on above: Result Comment: This is a duplicate Kavya SARS Antigen (ARON) result to be used for statistical tracking purpose only. PERFORMED BY: [facility] [address] [place] [address] PATHOLOGIST [employer] PIPING DESIGNER ZEE STEINBERG M.D. Performed By: #### C OVID-19 KAVYA, SOFIANEG #### [facility] [address] [id number] [facility] XR LSPINE 2_3 VIEWSon 2020 XR LSPINE [...] CHRISTEN WAGGONER Date: 2021-09-08 07:26 Normal [facility] COVID-19 Antigenon COVID-19 Antigen Healthcare Worker?: [...] its performance Kavya Disclaimer characteristic determined by [employer] and Kavya Disclaimer validated at [facility]. This Kavya Disclaimer test has not [...] is terminated or revoked sooner. PERFORMED BY: [facility] [address] [facility] [place] [address] PATHOLOGIST [employer] PIPING DESIGNER ZEE STEINBERG M.D. [facility] Comment on above: Performed By: #### S MARQUES COVID-19 KAVYA #### [address] Kavya Ag Negativeon 06-04-20 21 Kavya Ag Negative Negative Normal Negative [facility] Comment on above: Result Comment: This is a duplicate Kavya SARS Antigen (ARON) result to be used for statistical tracking purpose only. PERFORMED BY: [place] [id number] PATHOLOGIST [employer] PIPING DESIGNER ZEE STEINBERG M.D. Performed By: #### S OFIANEG, COVID-19 KAVYA #### [address] Vital Signs Date Time Vital Sign Value Performing Clinician Facility 10-26-2023 15:00-0500 Body height 175.26 cm Harlan Ball Other [email or web address] Other 10-26-2023 15:00-0500 Body mass index (BMI) [Ratio] 30.54 kg/m2 Harlan Ball Other [facility] Other 10-26-2023 15:00-0500 Body weight 93.8 kg Harlan Ball Other [facility] Other 10-26-2023 15:00-0500 Diastolic blood pressure 88 mm[Hg] Harlan Ball Other [facility] Other 10-26-2023 15:00-0500 Respiratory rate 12 /min Harlan Ball Other [facility] Other 10-26-2023 15:00-0500 Systolic blood pressure 147 mm[Hg] Harlan Ball Other [facility] Other 09-01-2023 15:15-0500 Body height 175.26 cm Harlan Ball Other [facility] Other 09-01-2023 15:15-0500 Body mass index (BMI) [Ratio] 30.92 kg/m2 Harlan Ball Other [facility] Other 09-01-2023 15:15-0500 Body weight 94.98 kg Harlan Ball Other [facility] Other 09-01-2023 15:15-0500 Diastolic blood pressure 94 mm[Hg] Harlan Ball Other [facility] Other 09-01-2023 15:15-0500 Respiratory rate 12 /min Harlan Ball Other [facility] Other 09-01-2023 15:15-0500 Systolic blood pressure 157 mm[Hg] Harlan Ball Other [facility] Other Encounters Encounter Date Encounter Type Care Provider Facility Start: 11-01-2023 End: 11-01-2023 ambulatory Harlan Ball Other [facility] Other Start: 11-01-2023 Telephone encounter Harlan Ball [facility] Start: 10-26-2023 End: 10-26-2023 ambulatory Harlan Ball Other [facility] Other Start: 10-26-2023 Office outpatient vi sit 15 minutes Harlan Ball [facility] Start: 09-06-2023 End: 09-06-2023 ambulatory Harlan Ball Other [facility] Other Start: 09-06-2023 Telephone encounter Harlan Ball [facility] Start: 09-01-2023 End: 09-01-2023 ambulatory Harlan Ball Other [facility] Other Start: 09-01-2023 Office outpatient vi sit 15 minutes Harlan Ball [facility] Start: 09-01-2023 Telephone encounter Harlan Ball [facility] Start: 08-02-2023 End: 08-02-2023 ambulatory Harlan Ball Other [facility] Other Start: 08-02-2023 Office outpatient vi sit 15 minutes Harlan Hernandez [facility] [facility] Start: 08-02-2023 Telephone encounter Harlan Hernandez FP [facility] Start: 07-29-2022 Encounter for genera l adult medical examination without abnormal findings DR HARLAN HERNANDEZ [facility] Start: 07-27-2022 End: 07-28-[address] HARLAN HERNANDEZ Facility:[facility]1 Start: 07-25-2022 End: 07-26-[address] HARLAN HERNANDEZ Facility:[facility] Start: 07-25-2022 End: 07-26-2022 Encounter for general adult medical examination without abnormal findings DR HARLAN HERNANDEZ Facility:[facility] Start: 07-14-2022 Adult health examination Harlan Hernandez Other [facility] Other Start: 10-05-2021 End: 10-17-[address] HARLAN HERNANDEZ Facility:[facility] Start: 09-29-2021 End: 09-30-[address] HARLAN HERNANDEZ Facility:[facility] Start: 09-26-2021 End: 09-27-[address] HARLAN HERNANDEZ Facility:[facility] Start: 09-11-2021 End: 10-03-[address] HARLAN HERNANDEZ Facility:[facility] Start: 09-06-2021 End: 09-07-[address] HARLAN HERNANDEZ Facility:[facility] Start: 03-03-2018 Ambulatory JACQUELINE PENNINGTON Faci lity:[id number] Start: 03-03-2018 Ambulatory Facility:[id number] Procedures Date Procedure Procedure Detail Performing Clinician Start: 07-25-[address] SHINE [place] Comment on above: Performed By: #### [facility] #### [facility] [address] [place] [address] Dr. Christina Palacios Start: 04-12-2018 General examination of patient Harlan David Other Start: 03-05-2018 Screening for malign ant neoplasm of colon Harlan Hernandez Other Depression screening Maxinejacinta henry David Other Screening for malign ant neoplasm of prostate Harlan Hernandez Other Immunizations Immunization Date Immunization Notes Care Provider Fa cili 07-18-2021 influenza virus vaccine, split virus (incl. purified surface antigen) Harlan Hernandez Other [facility] Other 01-08-2021 COVID-19 Vaccine Pfi zer - Documentation Purposes Only Harlan Hernandez Other [facility] Other 12-18-2020 Do not use COVID-19 Pfizer 2 dose Harlan Hernandez Other [facility] Other Payers Date Payer Category Payer Unknown [id number] 2.16.84 [id number] 1964 Unknown [id number] 2.16.84 [id number] 1964 Unknown [id number] 2.16.84 [id number] 1964 Unknown [id number] 2.16.84 [id number] 1964 Unknown [id number] 2.16.84 [id number] 1964 Unknown [id number] 2.16.84 [id number] 1959 Self-pay 1959 Unknown [id number] 1959 Unknown [id number] Unknown [id number] 2.16.84 [id number] Social History Date Type Detail Facility Unknown if ever smoked [facility] Other Sex Assigned At Sex Assigned At Bir th [facility] Other Evaluation note 11-01-2023 Note Date & Type Note Facility 11-01-2023 Evaluation note Encounter Date Diagnosis Assessment Notes Oct, Acute bilateral low back pain with right-sided sciatica (ICD-10 - M54.41) [facility] Other Evaluation note 11-01-2023 Note Date & Type Note Facility 11-01-2023 Evaluation note Encounter Date Diagnosis Assessment Notes Oct, Low back pain with radiation (ICD-10 - M54.50) [facility] Other Evaluation note 10-26-2023 Note Date & [...] safely use Tylenol as needed. Stretching exercises [facility] Other Evaluation note 09-01-2023 Note Date & [...] No improvement would refer to pain management [facility] Other Evaluation note 08-02-2023 Note Date & [...] prior to bedtime. Weight loss. Initiate PPI [facility] Other Evaluation note Note Date & Type Note Facility Evaluation note No Information [facility] Other History general Narrative - Reported Note Date & Type Note Facility History general Narrative - Reported Type Medical History HLD Surgical History appendix Surgical History tonsils Surgical History hernia [facility] Other History general Narrative - Reported Note Date & Type Note Facility History general Narrative - Reported Type Medical History HLD Surgical History appendix Surgical History tonsils Surgical History hernia Hospitalization History see surgical history [facility] Other Summary Purpose Family History No Family [...] content) DATE CREATED AUTHOR 03/23/2018 [facility] DATE CREATED AUTHOR AUTHOR'S ORGANIZ ATION 03/23/2018 [facility] DATE CREATED AUTHOR AUTHOR'S ORGANIZ ATION 10/27/2021 [facility] DATE CREATED AUTHOR AUTHOR'S ORGANIZ ATION 07/30/2022 [facility] REASON FOR VISIT (unrecogniz ed section and content) Hip Paindiscuss next steps a fter PTXR resultsPT orderBack/Leg Painsore throat for weeks [phone] FOR RECORDS PERTAINING TO PATIENTS WHO ARE [...] BE BASED ON THE PRIMARY CLINICAL RECORDS. [facility]. provides no warranty or guarantee of the accuracy or completeness of information in this document.
== END 2023-11-16 15:37 | disposition home or self-care (01) ==
LOC: MRI 15:36
PROVIDERS: PCP Internal Medicine; Visit Provider Internal Medicine
DX: M54.50 Low back pain, unspecified (principal)
CPT/HCPCS: 72148

== ENCOUNTER 2024-10-21 06:29 | Outpatient (OUT) | payer OTHER, SELFPAY ==
--- OUTSIDE RECORDS SUMMARY | 2024-10-21 06:34 | XMS_ITS | CCD ---
Author Organization [facility] Inform ion Partnership [facility] Care Team Providers Care 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 Name Role Phone JABUDDY HAJIMonae Unavailable Unavailable BALL, HARLAN Ramirez Unavailable Unavailable BALL, DR GALDAMEZ Primary Care Unavailable BALL, DR GALDAMEZ Admitting Unavailable BALL, DR GALDAMEZ Attending Unavailable BALL, DR GALDAMEZ Primary Care Unavailable BALL, DR GALDAMEZ Admitting Unavailable BALL, DR GALDAMEZ Attending Unavailable BALL, DR GALDAMEZ Primary Care Unavailable REQUEST, DR OLPEZ LISTED Admitting Unavaila ble REQUEST, DR LOPEZ [...] CHRISTEN Sanchez Consulting Unavailable Ball, Harlan Unavailable Harlan Hernandez MD Primary Care Provider Malena Baltazar Unavailable [phone] MALENA SAXENA Attending Unavailable MALENA SAXENA Attending Unavailable ENEDINA SAMSON Attending Unavailable Allergies Allergy Classification Reported Allergen(s) Allergy Type Date of Onset Reaction(s) Facility (1 source) Latex Drug allergy (disorder) 05-12-20 16 [facility] Repository (9 sources) atorvastatin Drug Allergy Comment:Myalgi as [facility] Other (9 sources) HMG-CoA reductase inhibitor Drug allergy Comment:Myalgi as - patient states he does not have allergies to STATINS [facility] Other (9 sources) Latex Propensity to adverse reactions Unknown [facility] Other (2 sources) Allergies Reconciled Propensity to adverse reactions Unknown [facility] Other (2 sources) patient allergy list reviewed by nurse or physicia Propensity to adverse reactions 07-06-20 Comment:Done [facility] Other (3 sources) Latex Allergy to substance 12-21-19 Unknown [facility] Medications Current Medications Medication Drug Class(es) Dates Sig (Normalized) Sig (Original) omeprazole 40 mg delayed release oral capsule (9 sources) Proton Pump Inhibitor Start: 08-02-2023 take 1 capsule by mouth once daily Omeprazole 40 MG 1 capsule 30 minutes before morning meal Orally Once a day for 30 days Jul, Active rosuvastatin calcium 20 mg oral tablet (12 sources) HMG-CoA Reductase Inhibitor Start: 10-02-2023 take 1 tablet by mouth once daily rosuvastatin (Crestor) 20 MG tablet Take 20 mg by mouth Daily 10/02/2023 Active Start: 07-27-2022 take 1 tablet by teressa th once daily in the evening rosuvastatin 20mg rosuvastatin 20mg, 1 (one) tablet daily in evening # 30, 07/27/2022, Ref. x11. Active oral daily in evening for 30 *Reorder from [employer] for eRx and Interaction Alerts* Jul, Active Completed/Discontinued Medications Medication Drug Class(es) Dates [...] sources) Obesity; Translations: [Obesity, unspecified] Chronic Other skin disorders (2 sources) Inflamed seborrheic keratosis; Translations: [Inflamed seborrheic keratosis] 10-10-2024 Episodic Other upper respiratory disease (2 sources) Seasonal [...] level, unspecified thigh, initial encounter] Onset: 09-24-20 16 Resolved : 04-14-20 21 Episodic Syncope (3 sources) Syncope and collapse; Translations: [Syncope and collapse] Onset: 01-27-20 18 Episodic Unclassified (1 source) LOW BACK PAIN, UNSPECIFIED; Translations: [LOW BACK PAIN, UNSPECIFIED] Onset: 10-05-19 Unclassified (2 sources) Long-term current use of drug therapy; Translations: [Long-term (current) use of other medications] Onset: 07-10-20 18 Unclassified (4 sources) Acute left-sided low back pain without sciatica M54.50 Results Test Name Value Interpretation Reference Range Facility No Panel Informationon 10-10 [facility] GLYCOHEMOGLOBIN A1Con 2021 ADA RECOMMENDATION SEE BELOW Normal [facility] Comment on above: Result Comment: ADA RECOMMENDED LIMIT 4.0 - 6.0 ADA THERAPEUTIC TARGET < 7.0 ACTION SUGGESTED > 7.0 Performed By: #### D ATA1C #### [facility] [address] [place] [address] Dr. Christina Palacios Glucose [Mass/Vol] 134 mg/dL Normal [facility] Comment on above: Performed By: #### D ATA1C #### [facility] [address] [place] [address] Dr. Christina Palacios HbA1c (Bld) [Mass fraction] 6.3 % Critically high 4.5-6.2 [facility] Comment on above: Performed By: #### D ATA1C #### [facility] [address] [place] [address] Dr. Christina Palacios CBC AUTO DIFFon 07-25-2022 BASO # 0.1 103/ul Normal 0.0-0.1 [facility] Comment on above: Performed By: #### C BC #### [facility] [address] [place] [address] Dr. Christina Palacios Basophils/100 WBC (Bld) 0.8 % Normal 0.2-2.0 [facility] Comment on above: Performed By: #### C BC #### [facility] [address] [place] [address] Dr. Christina Palacios EO # 0.4 103/ul Normal 0.0-0.7 [facility] Comment on above: Performed By: #### C BC #### [facility] [address] [place] [address] Dr. Christina Palacios Eosinophils/100 WBC (Bld) 4.7 % Normal 0.9-7.0 [facility] Comment on above: Performed By: #### C BC #### [facility] [address] [place] [address] Dr. Christina Palacios Erythrocyte distribution width (RBC) [Ratio] 12.1 % Normal 11.0-15.0 [facility] Comment on above: Performed By: #### C BC #### [facility] [address] [place] [address] Dr. Christina Palacios Hematocrit (Bld) [Volume fraction] 45.7 % Normal 42.0-54.0 [facility] Comment on above: Performed By: #### C BC #### [facility] [address] [place] [address] Dr. Christina Palacios Hemoglobin (Bld) [Mass/Vol] 15.5 g/dL Normal 14.0-18.0 [facility] Comment on above: Performed By: #### C BC #### [facility] [address] [place] [address] Dr. Christina Palacios IG # 0.03 10e3/ul Normal 0.00-0.03 [facility] Comment on above: Performed By: #### C BC #### [facility] [address] [place] [address] Dr. Christina Palacios IG % 0.4 % Normal 0.0-0.5 [facility] Comment on above: Performed By: #### C BC #### [facility] [address] [place] [address] Dr. Christina Palacios LYMPH # 1.7 103/ul Normal 1.2-3.8 [facility] Comment on above: Performed By: #### C BC #### [facility] [address] [place] [address] Dr. Christina Palacios Lymphocytes/100 WBC (Bld) 21.3 % Normal 20.5-60.0 [facility] Comment on above: Performed By: #### C BC #### [facility] [address] [place] [address] Dr. Christina Palacios MANUAL DIFF REQ NO Normal [facility] Comment on above: Performed By: #### C BC #### [facility] [address] [place] [address] Dr. Christina Palacios MCH (RBC) [Entitic mass] 30.6 pg Normal 25.9-34.0 [facility] Comment on above: Performed By: #### C BC #### [facility] [address] [place] [address] Dr. Christina Palacios MCHC (RBC) [Mass/Vol] 33.9 g/dL Normal 29.9-35.2 [facility] Comment on above: Performed By: #### C BC #### [facility] [address] [address] [address] Christina Palacios MCV (RBC) [Entitic vol] 90.1 fL Normal 80.0-94.0 [facility] Comment on above: Performed By: #### C BC #### [facility] [address] [address] [address] Christina Palacios MONO # 0.8 103/ul Normal 0.3-0.8 [facility] Comment on above: Performed By: #### C BC #### [facility] [address] [address] [address] Christina Palacios Monocytes/100 WBC (Bld) 9.6 % Normal 1.7-12.0 [facility] Comment on above: Performed By: #### C BC #### [facility] [address] [place] [address] Dr. Christina Palacios NEUT # 5.0 103/ul Normal 1.4-6.5 [facility] Comment on above: Performed By: #### C BC #### [facility] [address] [place] [address] Dr. Christina Palacios Neutrophils/100 WBC (Bld) 63.2 % Normal 43.0-75.0 [facility] Comment on above: Performed By: #### C BC #### [facility] [address] [place] [address] Dr. Christina Palacios Platelet mean volume (Bld) [Entitic vol] 9.7 fL Normal 9.5-13.5 [facility] Comment on above: Performed By: #### C BC #### [facility] [address] [place] [address] Dr. Christina Palacios PLT 221 103/ul Normal 150-450 [facility] Comment on above: Performed By: #### C BC #### [facility] [address] [place] [address] Dr. Christina Palacios RBC 5.07 106/ul Normal 4.70-6.10 [facility] Comment on above: Performed By: #### C BC #### [facility] [address] [place] [address] Dr. Christina Palacios WBC 7.9 103/ul Normal 4.0-11.0 [facility] Comment on above: Performed By: #### C BC #### [facility] [address] [address] [address] Christina Palacios LIPID PROFILEon 07-25-2022 CHOL-HDL RATIO NORM SEE BELOW Normal [facility] Comment on above: Result Comment: 3.3 - 4.4 LOW RISK 4.4 - 7.1 AVERAGE RISK 7.1 - 11.0 MODERATE RISK >11.0 HIGH RISK Performed By: #### C MP, LIPID #### [facility] [address] [address] [address] Christina Palacios Cholesterol [Mass/Vol] 197 mg/dL Normal <=200 [facility] Comment on above: Performed By: #### C MP, LIPID #### [facility] [address] [address] [address] Christina Palacios Cholesterol in HDL [Mass/Vol] 21 mg/dL Critically low 40-60 [facility] Comment on above: Performed By: #### C MP, LIPID #### [facility] [address] [address] [address] Christina Palacios Cholesterol in LDL [Mass/Vol] 134.0 mg/dL Normal [facility] Comment on above: Performed By: #### C MP, LIPID #### [facility] [address] [address] [address] Christina Palacios Cholesterol.total/Cho lesterol in HDL [Mass ratio] 9.4 {ratio} Normal [facility] Comment on above: Performed By: #### C MP, LIPID #### [facility] [address] [address] [address] Christina Palacios HDL NORMAL > or = 60 mg/dl - LOW CARDIOVASCULAR RISK <40 mg/dl - HIGH CARDIOVASCULAR RISK Normal [facility] Comment on above: Performed By: #### C MP, LIPID #### [facility] [address] [address] [address] Christina Palacios LDL CALC NORMAL SEE BELOW Normal [facility] Comment on above: Result Comment: <100 mg/dl OPTIMAL 100 - 129 mg/dl NEAR OR ABOVE OPTIMAL 130 - 159 mg/dl BORDERLINE HIGH 160 - 189 mg/dl HIGH >190 mg/dl VERY HIGH Performed By: #### C MP, LIPID #### [facility] [address] [place] [address] Dr. Christina Palacios Triglyceride [Mass/Vol] 210 mg/dL Critically high <=150 [facility] Comment on above: Performed By: #### C MP, LIPID #### [facility] [address] [place] [address] Dr. Christina Palacios VLDL CALC 42.0 mg/dL Normal [facility] Comment on above: Performed By: #### C MP, LIPID #### [facility] [address] [place] [address] Dr. Christina Palacios PROF 14(COMP METB)on 022 Albumin [Mass/Vol] 3.8 g/dL Normal 3.4-5.0 [facility] Comment on above: Performed By: #### C MP, LIPID #### [facility] [address] [place] [address] Dr. Christina Palacios Albumin/Globulin [Mass ratio] 1.0 {ratio} Normal [facility] Comment on above: Performed By: #### C MP, LIPID #### [facility] [address] [place] [address] Dr. Christina Palacios ALP [Catalytic activity/Vol] 84 U/L Normal 46-116 [facility] Comment on above: Performed By: #### C MP, LIPID #### [facility] [address] [place] [address] Dr. Christina Palacios ALT [Catalytic activity/Vol] 47 U/L Normal 16-63 [facility] Comment on above: Performed By: #### C MP, LIPID #### [facility] [address] [place] [address] Dr. Christina Palacios Anion gap [Moles/Vol] 9.8 mmol/L Normal [facility] Comment on above: Performed By: #### C MP, LIPID #### [facility] [address] [place] [address] Dr. Christina Palacios AST [Catalytic activity/Vol] 24 U/L Normal 15-37 [facility] Comment on above: Performed By: #### C MP, LIPID #### [facility] [address] [place] [address] Dr. Christina Palacios Bilirubin [Mass/Vol] 0.5 mg/dL Normal 0.2-1.0 [facility] Comment on above: Performed By: #### C MP, LIPID #### [facility] [address] [place] [address] Dr. Christina Palacios Calcium [Mass/Vol] 8.8 mg/dL Normal 8.5-10.1 [facility] Comment on above: Performed By: #### C MP, LIPID #### [facility] [address] [place] [address] Dr. Christina Palacios Chloride [Moles/Vol] 102 mmol/L Normal 98-107 [facility] Comment on above: Performed By: #### C MP, LIPID #### [facility] [address] [place] [address] Dr. Christina Palacios CO2 [Moles/Vol] 29.2 mmol/L Normal 21.0-32.0 [facility] Comment on above: Performed By: #### C MP, LIPID #### [facility] [address] [place] [address] Dr. Christina Palacios Creatinine [Mass/Vol] 0.96 mg/dL Normal 0.70-1.30 [facility] Comment on above: Performed By: #### C MP, LIPID #### [facility] [address] [place] [address] Dr. Christina Palacios EGFR-AF COSTA RICAN >60 Normal >=60 [facility] Comment on above: Performed By: #### C MP, LIPID #### [facility] [address] [place] [address] Dr. Christina Palacios EGFR-NON AF [place] >60 Normal >=60 [facility] Comment on above: Performed By: #### C MP, LIPID #### [facility] [address] [place] [address] Dr. Christina Palacios Globulin (S) [Mass/Vol] 3.7 g/dL Normal [facility] Comment on above: Performed By: #### C MP, LIPID #### [facility] [address] [address] [address] Christina Palacios Glucose [Mass/Vol] 134 mg/dL Critically high 74-106 [facility] Comment on above: Performed By: #### C MP, LIPID #### [facility] [address] [address] [address] Christina Palacios Potassium [Moles/Vol] 4.0 mmol/L Normal 3.5-5.1 [facility] Comment on above: Performed By: #### C MP, LIPID #### [facility] [address] [place] [address] Dr. Christina Palacios Protein [Mass/Vol] 7.5 g/dL Normal 6.4-8.2 [facility] Comment on above: Performed By: #### C MP, LIPID #### [facility] [address] [address] [address] Christina Palacios Sodium [Moles/Vol] 137 mmol/L Normal 136-145 [facility] Comment on above: Performed By: #### C MP, LIPID #### [facility] [address] [address] [address] Christina Palacios Urea nitrogen [Mass/Vol] 17.0 mg/dL Normal 7.0-18.0 [facility] Comment on above: Performed By: #### C MP, LIPID #### [facility] [address] [place] [address] Dr. Christina Palacios Urea nitrogen/Creatinine [Mass ratio] 17.7 mg/mg Normal [facility] Comment on above: Performed By: #### C MP, LIPID #### [facility] [address] [place] [address] Dr. Christina Palacios TESTOSTERONE, TOTALon 2020 Testosterone [Mass/Vol] 321 ng/dL Normal 264-916 [facility] Comment on above: Result Comment: Adul t male reference interval is based on a population of healthy nonobese males (BMI <30) between 19 and 39 years old. Jl et.al. JCEM 2017,102;0391-3051. PMID: [id number]. Performed By: #### T ESTTOT #### [facility] [address] [place] [address] Dr. Christina Palacios VIT D 25-OH LABCORPon 2020 Vitamin D, 25-Hydroxy 35.0 ng/mL Normal 30.0-100.0 [facility] Comment on above: Result Comment: Molly min D deficiency has been defined by the [place] of [employer] and an Endocrine Society practice guideline as a level of serum 25-OH vitamin D less than 20 ng/mL (1,2). The Endocrine Society went on to further define vitamin D insufficiency as a level between 21 and 29 ng/mL (2). 1. IOM ([place] of [employer]). 2010. Dietary reference intakes for calcium and D. [place]: The National Academies Press. 2. Ana MF, Dejuan [place], Tammy HAN, et al. Evaluation, treatment, and prevention of vitamin D deficiency: an Endocrine Society clinical practice guideline. JCEM. 2010; 96(7):1911-30. Performed By: #### V ITADLC #### [facility] [address] [place] [address] Dr. Christina Palacios PROF CHEM 8 (BAS METB)on Anion gap [Moles/Vol] 11.4 mmol/L Normal [facility] Comment on above: Performed By: #### B MP #### [facility] [address] [place] [address] Dr. Christina Palacios Calcium [Mass/Vol] 9.0 mg/dL Normal 8.4-10.2 [facility] Comment on above: Performed By: #### B MP #### [facility] [address] [place], [place] [id number] Dr. Christina Palacios Chloride [Moles/Vol] 102 mmol/L Normal 98-107 [facility] Comment on above: Performed By: #### B MP #### [facility] [address] [address] [address] Christina Palacios CO2 [Moles/Vol] 29.6 mmol/L Normal 22.0-30.0 [facility] Comment on above: Performed By: #### B MP #### [facility] [address] [address] [address] Christina Palacios Creatinine [Mass/Vol] 1.09 mg/dL Normal 0.66-1.25 [facility] Comment on above: Performed By: #### B MP #### [facility] [address] [address] [address] Christina Palacios EGFR-AF [place] >60 Normal >=60 [facility] Comment on above: Performed By: #### B MP #### [facility] [address] [address] [address] Christina Palacios EGFR-NON AF [place] >60 Normal >=60 [facility] Comment on above: Performed By: #### B MP #### [facility] [address] [address] [address] Christina Palacios Glucose [Mass/Vol] 114 mg/dL Critically high 74-106 [facility] Comment on above: Performed By: #### B MP #### [facility] [address] [address] [address] Christina Palacios Potassium [Moles/Vol] 4.0 mmol/L Normal 3.4-5.0 [facility] Comment on above: Performed By: #### B MP #### [facility] [address] [address] [address] Christina Palacios Sodium [Moles/Vol] 139 mmol/L Normal 137-145 [facility] Comment on above: Performed By: #### B MP #### [facility] [address] [address] [address] Christina Palacios Urea nitrogen [Mass/Vol] 19.0 mg/dL Normal 9.0-20.0 [facility] Comment on above: Performed By: #### B MP #### [facility] [address] [address] [address] Christina Palacios Urea nitrogen/Creatinine [Mass ratio] 17.4 mg/mg Normal [facility] Comment on above: Performed By: #### B #### [facility] [address] [address] [address] Christina Palacios XR DEXA BONE DENSITYon 09-26 XR DEXA BONE DENSITY EXAMINATION: XR DEXA BONE DENSITY, 09/26/2021 8:24 AM EST HISTORY: [...] by: THOMAS GALLAGHER Date: 2021-09-26 08:53 Normal [facility] COVID-19 Antigenon 1 COVID-19 Antigen Healthcare Worker?: N Kavya Reference -- Kavya Reference Negative SARS-CoV+SARS-CoV-2 (COVID-19) Ag [Presence] [...] its performance Kavya Disclaimer characteristic determined by [employer] and Kavya Disclaimer validated at [facility]. This Kavya Disclaimer test has not [...] Emergency Use Authorization for Coronavirus Kavya Disclaimer iseas during the Public Health Emergency) Kavya Disclaimer [...] is terminated or revoked sooner. PERFORMED BY: [facility] [address] PATHOLOGIST TOWER HOIST OPERATOR ZEE STEINBERG M.D. [facility] Comment on above: Performed By: #### C OVID-19 KAVYA, SOFIANEG #### [facility] [address] [id number] [facility] Kavya Ag Negativeon 09-18-20 Kavya Ag Negative Negative Normal Negative [facility] Comment on above: Result Comment: This is a duplicate Kavya SARS Antigen (ARON) result to be used for statistical tracking purpose only. PERFORMED BY: [facility] [address] [place] [address] PATHOLOGIST TOWER HOIST OPERATOR ZEE STEINBERG M.D. Performed By: #### C OVID-19 KAVYA, SOFIANEG #### [facility] [address] [id number] [facility] XR LSPINE 2_3 VIEWSon 2020 XR [...] CHRISTEN WAGGONER Date: 2021-09-08 07:26 Normal [facility] COVID-19 Antigenon 1 COVID-19 Antigen Healthcare Worker?: N Kavya Reference -- Kavya Reference Negative SARS-CoV+SARS-CoV-2 (COVID-19) Ag [Presence] [...] its performance Kavya Disclaimer characteristic determined by [employer] and Kavya Disclaimer validated at [facility]. This Kavya Disclaimer test has not [...] Emergency Use Authorization for Coronavirus Kavya Disclaimer iseas during the Public Health Emergency) Kavya Disclaimer [...] is terminated or revoked sooner. PERFORMED BY: [address] [place] [id number] PATHOLOGIST TOWER HOIST OPERATOR ZEE STEINBERG M.D. Normal [facility] Comment on above: Performed By: #### S MARQUES COVID-19 KAVYA #### [address] K[facility]ya Ag Negativeon 06-04-20 21 Kavya Ag Negative Negative Normal Negative [facility] Comment on above: Result Comment: This is a duplicate [employer] SARS Antigen (ARON) result to be used for statistical tracking purpose only. PERFORMED BY: [place] [address] PATHOLOGIST TOWER HOIST OPERATOR ZEE STEINBERG M.D. Performed By: #### S OFLANE COVID-19 KAVYA #### [address] Vital Signs Date Time Vital Sign Value Performing Clinician Facility 10-26-2023 15:00-0500 Body height 175.26 cm Harlan Sanrad Other [facility] [employer] Other 10-26-2023 15:00-0500 Body mass index (BMI) [Ratio] 30.54 kg/m2 Harlan Sanrad Other [facility] Other 10-26-2023 15:00-0500 Body weight 93.8 kg Harlan Sanrad Other [facility] Other 10-26-2023 15:00-0500 Diastolic blood pressure 88 mm[Hg] Harlan Sanrad Other [facility] Other 10-26-2023 15:00-0500 Respiratory rate 12 /min Harlan Sanrad Other [facility] Other 10-26-2023 15:00-0500 Systolic blood pressure 147 mm[Hg] Harlan Ball Other [facility] Other 09-01-2023 15:15-0500 Body height 175.26 cm Harlan Ball Other [facility] Other 09-01-2023 15:15-0500 Body mass index (BMI) [Ratio] 30.92 kg/m2 Harlan Ball Other [facility] Other 09-01-2023 15:15-0500 Body weight 94.98 kg Harlan Ball Other [facility] Other 09-01-2023 15:15-0500 Diastolic blood pressure 94 mm[Hg] Harlan Ball Other [facility] Other 09-01-2023 15:15-0500 Respiratory rate 12 /min Harlan Ball Other [facility] Other 09-01-2023 15:15-0500 Systolic blood pressure 157 mm[Hg] Harlan Ball Other [facility] Other Encounters Encounter Date Encounter Type Care Provider Facility Start: 10-10-2024 End: 10-10-2024 Bamboo flowsheet Enedina Samson MD Work Phone: [facility] Start: 10-10-2024 End: 10-10-2024 Bamboo flowsheet Enedina Samson MD Work Phone: [facility] Start: 10-10-2024 End: 10-10-2024 Patient encounter procedure Enedina Samson MD Work Phone: [facility] Comment on above: Seborrheic keratosis , inflamed (Primary Dx) Start: 10-10-2024 End: 10-10-2024 ambulatory ENEDINA SAMSON Not Available Start: 01-11-2024 End: 01-11-2024 ambulatory MALENA Hughes LOIS Not Available Start: 12-21-2023 End: 12-21-2023 ambulatory MALENA Hughes LOIS Not Available Start: 11-01-2023 End: 11-01-2023 ambulatory Harlan David Other [facility] Other Start: 11-01-2023 Telephone encounter Harlan Hernandez [facility] Start: 10-26-2023 End: 10-26-2023 ambulatory Harlna David Other [facility] Other Start: 10-26-2023 Office outpatient vi sit 15 minutes Harlan Ball [facility] Start: 09-06-2023 End: 09-06-2023 ambulatory Harlan Hernandez Other [facility] Other Start: 09-06-2023 Telephone encounter Harlan David [facility] Start: 09-01-2023 End: 09-01-2023 ambulatory Harlan David Other [facility] Other Start: 09-01-2023 Office outpatient vi sit 15 minutes Harlan Ball [facility] Start: 09-01-2023 Telephone encounter Harlan David [facility] Start: 08-02-2023 End: 08-02-2023 ambulatory Harlan Hernandez Other [facility] Other Start: 08-02-2023 Office outpatient vi sit 15 minutes Harlan Ball [facility] Start: 08-02-2023 Telephone encounter Harlan David [facility] Start: 07-29-2022 Encounter for genera l adult medical examination without abnormal findings DR HARLAN HERNANDEZ [facility] Start: 07-27-2022 End: 07-28-[address] HARLAN HERNANDEZ Facility:[facility] Start: 07-25-2022 End: 07-26-[address] HARLAN HERNANDEZ Facility:[facility] Start: 07-25-2022 End: 07-26-2022 Encounter for general adult medical examination without abnormal findings DR HARLAN HERNANDEZ Facility:[facility] Start: 07-14-2022 Adult health examination Harlan Hernandez Other [facility] [employer] Other Start: 10-05-2021 End: 10-17-[address] [...] Date Procedure Procedure Detail Performing Clinician Start: 10-10-2024 CRYOTHERAPY SKIN LESION Enedina Samson MD Work Phone: Start: 07-25-[address] FÁTIMA HERNANDEZ Comment on above: Performed By: #### P [facility] #### [facility] [address] [place] [address] Dr. Christina Palacios Start: 04-12-2018 General examination of patient Harlan Hernandez Other Start: 03-05-2018 Screening for malign ant neoplasm of colon Harlan Hernandez Other Depression screening Lizette Hernandez Other Screening for malign ant neoplasm of prostate Harlan Hernandez Other Plan of Treatment Date Care Activity Detail Author Start: 10-10-2024 End: 10-10-2024 Patient encounter procedure 10/10/2024 10:00 AM EST Office Visit [facility] [address] [place] [address] Enedina Samson MD [address] [place] [address] Arrived [facility] Comment on above: Arrived Start: 1965 Screening for malign ant neoplasm of colon [facility] Immunizations Immunization Date Immunization Notes Care Provider Fa cility 07-18-2021 influenza virus vaccine, split virus (incl. purified surface antigen) Harlan Hernandez Other [facility] Other 01-08-2021 COVID-19 Vaccine Pfi zer - Documentation Purposes Only Harlan Hernandez Other [facility] Other 12-18-2020 Do not use COVID-19 Pfizer 2 dose Harlan Hernandez Other [facility] Other Payers Date Payer Category Payer Private Health Insurance [employer] [id number] 2023 Private Health Insurance [id number] 1964 Unknown [id number] 1964 Unknown [id number] 59 1964 Unknown [id number]. 59 1964 Unknown [id number]. 59 1964 Unknown [id number] [id number]. 59 1964 Unknown [id number] [id number] 59 1964 Unknown [id number]. 1259 1964 Unknown [id number] [id number]. 1259 1964 Unknown [id number]. 1259 1959 Self-pay 1959 Unknown [id number] 1959 Unknown [id number] Unknown [id number]. 593 Social History Date Type Detail Facility Unknown if ever smoked [facility] Other Start: 01-11-2024 End: 10-10-2024 Sex Assigned At [facility] Other Start: 12-21-2023 Tobacco smoking status DCIS Never smoked tobacco [facility] Start: 12-21-2023 Tobacco use and exposure Smokeless tobacco non-user [facility] Start: 01-11-2024 End: 10-10-2024 History of Social function [facility] Start: 1965 Sex assigned at Male [facility] Start: 12-21-2023 Gender identity Identifies as male gender (finding) [facility] Start: 12-21-2023 Sexual orientation Heterosexual (finding) [facility] History of Present illness Narrative 10-10-2024 Enedina Samson MD - 10/10/2024 10:00 AM EST Note Date & Type Note Facility 10-10-2024 History of Presen t illness Narrative Images from the original note were not included. Lesions: Location: right neck x 2 Duration: less than a week Quality: denies pain, denies itch, denies bleeding Modifying factors: rubs on clothing Associated symptoms: raised, crusty Treatments: ' popped it' New patient, last seen 09/2019 All pertinent medical history, medications, and allergies were reviewed. General Exam: alert, oriented to person, place, and time, normal affect, well appearing Unaccompanied A focused exam completed based on patient reported problems, see below: 1. Seborrheic keratosis, inflamed (2) Right Anterior Neck, Right Supraclavicular Area [place] and brown pedunculated papules with surrounding erythema The patient was informed that ISK are benign growths usually found around the neck or in the axillae. Due to symptoms/inflammation, removal performed today, see procedure note. Procedure: Seborrheic keratosis, inflamed Informed consent: Discussed risks (permanent scarring, infection, pain, bleeding, bruising, redness, and recurrence of the lesion) and benefits of the procedure, as well as the alternatives. He is aware that ISKs are benign lesions, and their removal is often not considered medically necessary. Informed consent was obtained and waiver was signed if needed. Anesthesia: 1% lidocaine with epinephrine and a 1:10 solution of 8.4% sodium bicarbonate, Quantity: 0.2 cc The area was prepared and draped in a standard fashion. Snip removal was performed. Bleeding was controlled with aluminum chloride A sterile dressing was applied. The patient tolerated procedure well. The patient was instructed on post-op care. Number of lesions removed: 2 Cryotherapy, skin lesion - Right Anterior Neck, Right Supraclavicular Area Next Visit: prn for any new/changing lesions documented in this encounter [facility] Evaluation note 11-01-2023 Note Date & Type Note Facility 11-01-2023 Evaluation note Encounter Date Diagnosis Assessment Notes Oct, Acute bilateral low back pain with right-sided sciatica (ICD-10 - M54.41) [facility] Other Evaluation note 11-01-2023 Note Date & Type Note Facility 11-01-2023 Evaluation note Encounter Date Diagnosis Assessment Notes Oct, Low back pain with radiation (ICD-10 - M54.50) [facility] Other Evaluation note 10-26-2023 Note Date & [...] safely use Tylenol as needed. Stretching exercises [facility] Other Evaluation note 09-01-2023 Note Date & [...] No improvement would refer to pain management [facility] Other Evaluation note 08-02-2023 Note Date & [...] prior to bedtime. Weight loss. Initiate PPI [facility] Other Evaluation note Note Date & Type Note Facility Evaluation note No Information Possible Web Other Evaluation note Note Date & Type Note Facility Evaluation note Diagnosis Seborrheic keratosis, inflamed- Primary documented in this encounter [facility] History general Narrative - Reported Note Date & Type Note Facility History general Narrative - Reported Type Medical History HLD Surgical History appendix Surgical History tonsils Surgical History hernia 2Peer ([place]) [facility] [employer] Other History general Narrative - Reported Note Date & Type Note Facility History general Narrative - Reported Type Medical History HLD Surgical History appendix Surgical History tonsils Surgical History hernia Hospitalization History see surgical history [facility] Other Summary Purpose Family History No Family [...] section and content) DATE CREATED AUTHOR 03/23/2018 [facility] DATE CREATED AUTHOR AUTHOR'S ORGANIZ ATION 03/23/2018 [facility] DATE CREATED AUTHOR AUTHOR'S ORGANIZ ATION 10/27/2021 [facility] DATE CREATED AUTHOR AUTHOR'S ORGANIZ ATION 07/30/2022 [facility] DATE CREATED AUTHOR AUTHOR'S ORGANIZ ATION 10/16/2024 [facility] EPIC REASON FOR VISIT (unrecogniz ed section and content) Reason Comments Suspicious Skin Lesion Hip Paindiscuss next steps after PTXR resultsPT orderBack/Leg Painsore throat for weeks [phone] Care Teams (unrecognized sec tion and content) 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 Relationship Specialty Start Date End Date Harlan Hernandez MD [address] [place] [address] PCP - General Internal Medicine 12/21/23 Malena Saxena PA [address] [facility] [address] [place] [address] PCP - Medical [place] [employer] 02/02/04 10/03/99 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 Relationship Specialty Start [place] [address] [place] [phone] PCP - General Internal Medicine 12/21/23 Malena Saxena PA [address] [address] PCP - Medical [place] [employer] 02/02/04 10/03/99 FOR RECORDS PERTAINING TO PATIENTS WHO ARE [...] BE BASED ON THE PRIMARY CLINICAL RECORDS. [employer] [facility]. provides no warranty or guarantee of the accuracy or completeness of information in this document.
[2024-10-21 07:07] LABS: Basophils Absolute Auto 0.1 10^3/uL (0.0-0.1); Basophils Percent Auto 0.6 % (0.2-2.0); Eosinophils Absolute Auto 0.4 10^3/uL (0.0-0.7); Eosinophils Percent Auto 5.3 % (0.9-7.0); Hematocrit 46.5 % (42.0-54.0); Hemoglobin 15.9 g/dL (14.0-18.0); Immature Granulocytes Abs Auto 0.02 10^3/uL (0.00-0.03); Immature Granulocytes Pct Auto 0.2 % (0.0-0.5); Lymphocytes Percent Auto 24.6 % (20.5-60.0); Mean Corpuscular HGB Conc 34.2 g/dL (29.9-35.2); Mean Corpuscular Volume 87.7 fL (80.0-94.0); Mean Platelet Volume 9.8 fL (9.5-13.5); Monocytes Absolute Auto 0.8 10^3/uL (0.3-0.8); Monocytes Percent Auto 9.3 % (1.7-12.0); Neutrophils Absolute Auto 4.9 10^3/uL (1.4-6.5); Platelet Count 233 10^3/uL (150-450); Red Cell Distribution Width 11.9 % (11.0-15.0); White Blood Count 8.2 10^3/uL (4.0-11.0)
[2024-10-21 07:47] LABS: Alanine Aminotransferase 36 U/L (16-63); Albumin Globulin Ratio 1.1; Albumin Level 3.8 g/dL (3.4-5.0); Alkaline Phosphatase 83 U/L (46-116); Anion Gap 12.5; Aspartate Amino Transferase 21 U/L (15-37); BUN Creatinine Ratio 15.5; Bilirubin Total 0.6 mg/dL (0.2-1.0); Calcium 8.7 mg/dL (8.5-10.1); Chloride 105 mmol/L (98-107); Chol HDL Ratio 3.5; Creatine Kinase 116 U/L (39-308); Estimated GFR (African America >60 (>=60 mL/min/1.73m^2); Estimated GFR (Non-African Ame >60 (>=60 mL/min/1.73m^2); Globulin 3.4 g/dL; Glucose 143 mg/dL (74-106); HDL Cholesterol 36 mg/dL (40-60); Potassium 4.5 mmol/L (3.5-5.1); Sodium 143 mmol/L (136-145); Total Protein 7.2 g/dL (6.4-8.2); Triglycerides 79 mg/dL (<=150); VLDL CHOLESTEROL 15.8 mg/dL
[2024-10-21 07:57] LABS: Prostate Specific Antigen Scrn 0.48 ng/mL (<=4.00)
[2024-10-21 13:45] LABS: Cholesterol 137 mg/dL (<=200)
== END 2024-10-21 06:30 | disposition home or self-care (01) ==
LOC: LAB 06:31
PROVIDERS: PCP Internal Medicine; Visit Provider Internal Medicine
DX: Z00.00 Encounter for general adult medical examination without abnormal findings (principal)
CPT/HCPCS: 36415; 80053; 80061; 82550; 85025; G0103